=== PATIENT | female | born 1955 | race Caucasian/White ===

== ENCOUNTER 2020-08-28 14:14 | Outpatient (REF) | payer MEDICARE, SELFPAY | END 2020-08-28 14:15 | disposition home or self-care (01) | LOC: HO.LAB 14:14 | PROVIDERS: PCP Family Medicine; Visit Provider Internal Medicine | DX: Z20.828 Contact with and (suspected) exposure to other viral communicable diseases (principal) | CPT/HCPCS: C9803; U0003 ==

== ENCOUNTER 2020-08-28 14:33 | Emergency (ER) | payer MEDICARE, SELFPAY ==
[2020-08-28 15:17] VITALS: BP 138/78; PULSE 70; RESP 18; TEMP 37; O2SAT 98; BMI 35.0
[2020-08-28 15:58] VITALS: BP 134/71; PULSE 68; RESP 17; O2SAT 96
--- NOTE | 2020-08-28 16:07 | ED.BACK ---
HPI - Back Pain/Injury General Chief Complaint: Headache Stated Complaint: back pain, high blood sugar Time Seen by Provider: 08/28/20 16:01 Source: patient Mode of arrival: ambulatory Limitations: no limitations History of Present Illness HPI Narrative: pt comes to the ER c/o headache and lower back pain For 3 days. Patient states that she has tried Tylenol with no relief. Patient cannot take ibuprofen due to renal insufficiency / dialysis. Patient denies any injury, denies dysuria, no fever chills, no cough. Related Data Previous Rx's Medication Instructions Recorded diazepam 2 mg PO TID PRN #10 tab 08/28/20 Allergies Allergy/AdvReac Type Severity Reaction Status Date / Time ibuprofen [IBUPROFEN] Allergy Intermediate HX KIDNEY Verified 08/28/20 15:20 FAILURE oxycodone [OXYCODONE] Allergy Unknown ITCHING, Verified 08/28/20 15:20 throat swells Review of Systems Review of Systems: Constitutional : No Weight loss, No Fever, No Chills, No Night Sweats, No Fatigue, No Malaise ENT/Mouth : No Hearing loss, No Ear Pain, No Nasal Congestion, No Sinus Pain, No Hoarseness, No sore throat, No Rhinorrhea, No Swallowing Difficulty Eyes: No Eye Pain, No Swelling, No Redness, No Foreign Body, No Discharge, No Vision Changes Cardiovascular : No Chest Pain, No SOB, No Dyspnea on Exertion, No Orthopnea, No Edema, No Palpitations Respiratory : No Cough, No Sputum, No Wheezing, No Smoke Exposure, No Dyspnea Gastrointestinal : No Nausea, No Vomiting, No Diarrhea, No Constipation, No abdominal Pain, No Hematochezia, No Melena Genitourinary : no irregular bleeding, No Dysuria, No Urinary Frequency, No Hematuria, No Urinary Incontinence, No Urgency, No Flank Pain, No Urinary Flow Changes, No Hesitancy Musculoskeletal : No joint pain, No Joint Swelling, complaining of lower back pain Skin : No Skin Lesions, No rash Neuro : No Weakness, No Numbness, No Paresthesias, No Loss of Consciousness, No Dizziness, [id number] headache not responding to Tylenol Psych : No Anxiety/Panic, No Depression, No SI/HI/AH/VH, No Social Issues, Heme/Lymph: No Bruising, No Bleeding,No Lymphadenopathy Endocrine : No Polyuria, No Polydipsia, No Temperature Intolerance PMFSH Past Medical History Medical History (Updated 08/28/20 @ 17:18 by Liliane Negrete MD) CKD (chronic kidney disease) GERD (gastroesophageal reflux disease) Gout Hypertension Social History Social History Alcohol intake: never Smoking Status: Never smoker Use of substances other than those prescribed or required for medical reasons: No Advance Directives: No Advance Directives Information Provided: Yes Physical Exam Vital Signs: Vital Signs: Last Vital Signs Temp 98.6 F 08/28/20 15:17 Pulse 68 08/28/20 15:58 Resp 17 08/28/20 15:58 BP 134/71 08/28/20 15:58 Pulse Ox 96 08/28/20 15:58 Body Mass Index 35.0 Appearance: Alert. Oriented X3. No acute distress. Eyes: Pupils equal, round and reactive to light. ENT: Pharynx normal. Neck: Normal inspection. Neck supple. No lymph nodes noted. No crepitus CVS: Normal heart rate and rhythm. Pulses normal. Normal S1 and S2 Respiratory: No respiratory distress. Breath sounds normal. No Wheezing. No rales Abdomen: Soft and nontender. No rigidity. No distention. good BS x4 Back: Pain to the patient on on the paraspinal muscles bilaterally, discomfort with back flexion and extension, no flank pain. Skin: Skin warm and dry. Normal skin color. Normal skin turgor. Extremities: No lower extremity edema. No lower extremity edema. No Lacerations. No Rash Neuro: Oriented X 3. No motor deficit. No sensory deficit. Moving all extermities. No slurred speech. Course Course Course Narrative: Patient does not have a urinary tract infections, pyelonephritis not suspected at this time. Patient's pain likely musculoskeletal. Due to patient's history of kidney failure, and sats will be avoided. MDM - Back Pain/Injury Lab Data Labs: Lab Results 08/28/20 Range/Units 16:42 Urine Color YELLOW Urine Appearance HAZY Urine pH 7.0 (5.0-8.0) Ur Specific [place] 1.010 (1.005-1.025) Urine Protein NEG (NEG-TRACE) MG/DL Urine Glucose (UA) NEG (NEG) MG/DL Urine Ketones NEG (NEG) MG/DL Urine Blood NEG (NEG) Urine Nitrite NEG (NEG) Ur Leukocyte Esterase NEG (NEG) Discharge Plan Discharge Clinical Impression: Headache Qualifiers: Headache type: unspecified Headache chronicity pattern: unspecified pattern Intractability: not intractable Qualified Code(s): R51.9 - Headache, unspecified Back pain Qualifiers: Back pain location: back pain in unspecified location Chronicity: acute Back pain laterality: unspecified Qualified Code(s): M54.9 - Dorsalgia, unspecified Patient Disposition: Home, Self-Care Instructions: Back Pain (ED) Additional Instructions: Please follow-up with your primary care physician tomorrow. If you have any worsening or new symptoms, please return to the emergency room or call 911 Prescriptions: New diazepam 2 mg tablet 2 mg PO TID PRN (Reason: muscle spasm) Qty: 10 RF: 0
[2020-08-28] MEDS: diazePAM 5 MG TABLET PO (16:24)
[2020-08-28] MEDS: traMADoL HCL 50 MG TABLET PO (16:24)
[2020-08-28 17:08] LABS: Glucose Urine UA NEG (NEG); Leukocyte Esterase Urine NEG (NEG); Nitrite Urine NEG (NEG); Urine Blood NEG (NEG); Urine Ketones NEG (NEG); Urine Protein NEG (NEG-TRACE)
[2020-08-28 17:10] LABS: Appearance Urine HAZY; Color Urine YELLOW
== END 2020-08-28 17:29 | disposition home or self-care (01) ==
PROVIDERS: Emergency Provider Emergency Medicine; PCP Family Medicine
DX: R51.9 Headache, unspecified (principal); M54.9 Dorsalgia, unspecified; Z79.899 Other long term (current) drug therapy
CPT/HCPCS: 81003; 99283; 99284

== ENCOUNTER → 2020-10-07 13:54 | Outpatient (REF) | payer MEDICARE, SELFPAY | LOC: HO.SL 13:54 | PROVIDERS: PCP Family Medicine; Visit Provider Nurse Practitioner Family | DX: Z13.89 Encounter for screening for other disorder (principal) ==

== ENCOUNTER 2020-10-19 08:42 | Outpatient (REF) | payer MEDICARE, SELFPAY | END 2020-10-19 08:43 | disposition home or self-care (01) | LOC: HO.LAB 08:42 | PROVIDERS: PCP Family Medicine; Visit Provider Internal Medicine | DX: Z20.822 Contact with and (suspected) exposure to COVID-19 (principal) | CPT/HCPCS: 36415; C9803; U0003 ==

== ENCOUNTER 2020-11-14 08:58 | Outpatient (REF) | payer MEDICARE, SELFPAY ==
[2020-11-14 09:18] LABS: Basophils Absolute Auto 0.1 X10*3/uL (0.0-0.2); Basophils Percent Auto 0.7 % (0-2); Eosinophils Absolute Auto 0.1 X10*3/uL (0.0-0.4); Eosinophils Percent Auto 0.8 % (0-4); Hematocrit 39.3 % (37-47); Hemoglobin 12.9 g/dl (12.0-16.0); Imm Gran Abs Auto 0.03 X10*3/uL (0.00-0.03); Imm Gran Pct Auto 0.4 % (0.0-0.4); Lymphocytes Absolute Auto 2.5 X10*3/uL (1.2-4.9); Lymphocytes Percent Auto 35.3 % (20-40); MANUAL DIFF FLAG NO; Mean Corpuscular HGB Conc 32.8 g/dl (31.0-35.0); Mean Corpuscular Hemoglobin 28.4 pg (27.0-33.0); Mean Corpuscular Volume 86.4 fL (80-98); Mean Platelet Volume 9.7 fL (9.4-12.3); Monocytes Absolute Auto 0.6 X10*3/uL (0.1-1.2); Neutrophils Absolute Auto 3.9 X10*3/uL (2.0-8.3); Neutrophils Percent Auto 54.8 % (45-73); Platelet Count 249 X10*3/uL (160-400); Red Blood Count 4.55 X10*6/uL (4.20-5.50); Red Cell Distribution Width 13.7 % (11.0-16.0); White Blood Count 7.1 X10*3/uL (4.8-10.8)
[2020-11-14 09:45] LABS: Albumin Level 4.3 g/dL (3.5-5.0); Anion Gap 16 (12-20); Blood Urea Nitrogen 23 mg/dL (9-16); Calcium 9.5 mg/dL (8.4-10.2); Carbon Dioxide 25 mmol/L (22-29); Chloride 106 mmol/L (96-108); Estimated Glomerular Filt Rate 46; Magnesium 1.8 mg/dL (1.6-2.6); Phosphorus 3.7 mg/dL (2.7-4.5); Potassium 3.9 mmol/L (3.3-5.1); Sodium 143 mmol/L (135-145)
[2020-11-14 10:11] LABS: Creatinine Urine 36.55 mg/dL; Microalbum/Creatinine Ratio Ur 150.4 ug/mg cr
[2020-11-14 10:27] LABS: Glucose Urine UA 100 MG/DL (NEG); Leukocyte Esterase Urine NEG (NEG); Nitrite Urine NEG (NEG); PH 6.5 (5.0-8.0); Specific Gravity - Urine 1.015 (1.005-1.025); Urine Blood NEG (NEG); Urine Ketones NEG (NEG); Urine Protein NEG (NEG-TRACE)
[2020-11-14 10:29] LABS: Appearance Urine CLEAR; Color Urine YELLOW
[2020-11-14 11:15] LABS: Bacteria Urine TRACE /LPF; RBC Urine 0 /HPF (0); Squamous Epithelial Cell Urine 1+ /LPF; WBC Urine 0 /HPF (0-4)
[2020-11-14 13:08] LABS: Renal w Reflex Lab Use Only Order verified
[2020-11-14 13:24] LABS: Total Protein Urine Random 11 mg/dL (<12)
== END 2020-11-14 08:59 | disposition home or self-care (01) ==
LOC: HO.LAB 08:58
PROVIDERS: PCP Family Medicine; Visit Provider Internal Medicine Nephrology
DX: I12.0 Hypertensive chronic kidney disease with stage 5 chronic kidney disease or end stage renal disease (principal); N18.6 End stage renal disease; E11.21 Type 2 diabetes mellitus with diabetic nephropathy; E11.22 Type 2 diabetes mellitus with diabetic chronic kidney disease; N17.9 Acute kidney failure, unspecified; M1A.00X0 Idiopathic chronic gout, unspecified site, without tophus (tophi); Z99.2 Dependence on renal dialysis
CPT/HCPCS: 36415; 80051; 81001; 82040; 82043; 82310; 82565; 83735; 84100; 84156; 84520; 85025

== ENCOUNTER 2020-12-01 11:51 | Outpatient (REF) | payer MEDICARE, SELFPAY | END 2020-12-01 11:52 | disposition home or self-care (01) | LOC: HO.LAB 11:51 | PROVIDERS: Visit Provider Internal Medicine | DX: Z20.822 Contact with and (suspected) exposure to COVID-19 (principal) | CPT/HCPCS: 36415; C9803; U0003; U0005 ==

== ENCOUNTER → 2020-12-29 14:01 | Outpatient (REF) | payer MEDICARE, SELFPAY | LOC: HO.SL 14:01 | PROVIDERS: PCP Family Medicine; Visit Provider Nurse Practitioner Family | DX: G47.33 Obstructive sleep apnea (adult) (pediatric) (principal) | CPT/HCPCS: 95806 ==

== ENCOUNTER 2021-01-17 04:49 | Emergency (ER) | payer MEDICARE, SELFPAY ==
--- NOTE | ~2021-01-17 | CT_ITS ---
EXAMINATION: CT ABDOMEN AND PELVIS WITHOUT CONTRAST CLINICAL INFORMATION: Flank pain. Evaluate for kidney stone. COMPARISON: Abdomen ultrasound from 08/09/2019. Abdomen CT from 08/07/2019. TECHNIQUE: Multidetector volumetric imaging was performed from the superior aspect of the liver through the pubic symphysis. Sagittal and coronal reformatted images were obtained on the technologist's workstation. This CT examination was performed using dose optimization techniques as appropriate, variously including the following: *Automated exposure control *Adjustment of mA and/or kV according to patient size (this includes techniques or standardized protocols for targeted exams where dose is matched to indication/reason for exam; i.e. extremities or head) *Use of iterative reconstruction technique DLP: 679 mGy-cm FINDINGS: LUNG BASES: There are scattered linear and/or hazy opacities of mild atelectasis in bases. No pulmonary consolidation or pleural effusion at either lung base. LIVER: Mild hepatomegaly and mild, diffuse steatosis. No focal hepatic lesion is detected on this noncontrast examination. GALLBLADDER AND BILIARY TREE: Gallbladder is surgically absent. No intrahepatic or extrahepatic bile duct dilatation. PANCREAS: Normal. No evidence of edema, pancreatic ductal dilatation or mass. SPLEEN: Normal. ADRENAL GLANDS: Again noted is a small adenoma left adrenal gland, which has been detected and described on prior CT exams. KIDNEYS AND URETERS: Kidneys are normal in size and have lobulated contour. No nephrolithiasis or hydronephrosis. 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 There are no stones identified along either ureter. BLADDER: Normal. No calculi or wall thickening. BOWEL AND PERITONEUM: Stomach is unremarkable. No dilated loops of bowel. The appendix is normal. There are diverticula of the colon. No overt bowel wall thickening or mesenteric fat stranding. No ascites or pneumoperitoneum. ABDOMINAL WALL: Unremarkable. VASCULATURE: Unremarkable. LYMPH NODES: No pathologic sized lymph nodes in the abdomen or pelvis. No inguinal lymphadenopathy. PELVIC VISCERA: The uterus is absent. No adnexal mass. No pelvic free fluid. SKELETAL: No acute finding is in the chronically degenerated lumbar spine. The disc space narrowing is worst at L5-S1. Vacuum disc phenomenon at L3-L4 and L4-L5, and chronic grade 1 anterolisthesis of L4 on L5. CT/CT abdomen pelvis wo con IMPRESSION: * No acute imaging abnormalities in the abdomen or pelvis compared to 08/07/2019. * No evidence of urolithiasis or hydronephrosis. * Mild hepatic steatosis.
--- NOTE | ~2021-01-17 | XR_ITS ---
EXAMINATION: XR CHEST CLINICAL INFORMATION: Chest pain COMPARISON: 05/28/2019 TECHNIQUE: 2 views of the chest were obtained. FINDINGS: Lungs are symmetrically hypoexpanded and clear. No consolidation, pleural effusion or pneumothorax. Cardiac silhouette is normal in size. The hilar contours are normal. The visualized bones are intact. XR/XR chest 2V IMPRESSION: No acute pulmonary disease.
--- NOTE | ~2021-01-17 | CT_ITS ---
EXAMINATION: CT ANGIOGRAM OF THE CHEST WITH CONTRAST (CT PULMONARY ANGIOGRAM FOR PE) CLINICAL INFORMATION: Chest pain. Evaluate for pulmonary embolism. COMPARISON: CXR from 01/17/2021. Chest CT from 01/30/2016. TECHNIQUE: Prior to contrast administration, noncontrast localization images were obtained. Subsequently, multidetector volumetric imaging was performed from the thoracic inlet to below the diaphragms following the administration of 65 mL Omnipaque 350 intravenous contrast. No contrast reaction reported. Sagittal, coronal, and MIP oblique sagittal reformatted images were obtained on the CT workstation, uploaded to PACS, and reviewed. This CT examination was performed using dose optimization techniques as appropriate, variously including the following: *Automated exposure control *Adjustment of mA and/or kV according to patient size (this includes techniques or standardized protocols for targeted exams where dose is matched to indication/reason for exam; i.e. extremities or head) *Use of iterative reconstruction technique DLP: Total exam dose-length product 383 mGy-cm FINDINGS: LUNGS AND PLEURA: Trachea and central airways are widely patent and normal in caliber. No mucous plugging or bronchiectasis. No interstitial disease. No edema, consolidation or pleural effusion. No pneumothorax. Lungs have slightly mosaic attenuation, which is suggestive of air trapping phenomenon, as may be observed in small airways inflammation. QUALITY OF STUDY/CONTRAST BOLUS: Satisfactory. CARDIOVASCULAR: The pulmonary arteries are normal in size. No embolic filling defects are identified within the main, lobar or segmental vessels. The heart size is normal. Mild atherosclerotic calcification of coronary arteries. Also, mild atherosclerosis of thoracic aorta without aneurysm. No pericardial effusion. MEDIASTINUM/LOWER NECK: The esophagus is unremarkable. No mediastinal mass or pneumomediastinum. The visualized portion of the thyroid gland is normal. LYMPHATICS: No pathologic sized axillary, hilar or mediastinal lymph nodes. UPPER ABDOMEN: No contrast reflux into the inferior vena cava. Gallbladder is surgically absent. Findings in the abdomen are as reported on CT abdomen-pelvis from 01/17/2021. OSSEOUS STRUCTURES/CHEST WALL: Mild spondylosis of the thoracic spine. Thoracic vertebra have normal height and alignment. No aggressive osseous lesions. Small, 1 cm nodular focus is observed in the right breast at site of prior hematoma. CT/CT angio chest IMPRESSION: * No evidence of pulmonary embolism, pneumonia or pleural effusion. * Lungs have slightly mosaic attenuation. This could represent air trapping phenomenon secondary to small airways inflammation. * Mild atherosclerosis of coronary arteries and thoracic aorta without aortic aneurysm.
[2021-01-17 05:50] VITALS: BP 146/83; PULSE 60; RESP 16; TEMP 37.8; O2SAT 99; BMI 38.7
--- NOTE | 2021-01-17 06:58 | ECG_ITS ---
Test Reason : rt chest pain Blood Pressure : / mmHG Vent. Rate : 066 BPM Atrial Rate : 066 BPM P-R Int : 142 ms QRS Dur : 090 ms QT Int : 442 ms P-R-T Axes : 017 -18 008 degrees QTc Int : 463 ms Normal sinus rhythm Normal ECG When compared with ECG of 21-MAY-2019 13:09, Sinus rhythm has replaced Junctional rhythm Nonspecific T wave abnormality no longer evident in Lateral leads Referred By: Fahad Sapp Electronically Signed By:Samuel Jason
[2021-01-17 07:03] VITALS: BP 140/70; PULSE 61; RESP 18; TEMP 36.9; O2SAT 100
[2021-01-17 07:03] LABS: Glucose Urine UA NEG (NEG); Leukocyte Esterase Urine NEG (NEG); Nitrite Urine NEG (NEG); Urine Blood NEG (NEG); Urine Ketones NEG (NEG); Urine Protein NEG (NEG-TRACE)
[2021-01-17 07:09] LABS: MANUAL DIFF FLAG NO
--- NOTE | 2021-01-17 07:12 | ED.GENADULT ---
HPI - General Adult General Chief complaint: Abdominal Pain Stated complaint: Back pain Time Seen by Provider: 01/17/21 06:32 History of Present Illness HPI narrative: Pleasant 65 years old of female brought in by ambulance because of right-sided pain. She told the EMS that she was having right flank pain , she tells me that the pain is more in the right back chest wall pleuritic in nature In the ambulance and she was given 15 mg of ketorolac by day product design manager. She denies any fever, chills, vomiting. Onset (ago): day(s) (1) Location: back Radiation: non-radiation Severity: moderate Relieving factors: none Associated symptoms: denies other symptoms Related Data Home Medications Medication Instructions Recorded Confirmed amlodipine 10 mg tablet 10 mg PO DAILY 09/22/20 09/23/20 cinnamon bark 500 mg capsule 500 mg PO DAILY 09/22/20 09/23/20 fluticasone propionate 50 0 mcg INTRANASAL 09/22/20 09/23/20 mcg/actuation nasal spray,suspension furosemide 20 mg tablet 20 mg PO QAM 09/22/20 09/23/20 gabapentin 300 mg capsule 300 mg PO BEDTIME 09/22/20 09/23/20 glipizide 5 mg tablet 5 mg PO QAM 09/22/20 09/23/20 hydralazine 50 mg tablet 50 mg PO BID 09/22/20 09/23/20 metoprolol succinate 100 mg 100 mg PO BEDTIME 09/22/20 09/23/20 tablet,extended release 24 hr nystatin 100,000 unit/gram topical TOPICAL BID 09/22/20 09/23/20 cream omega-3 fatty acids-fish oil 340 1 cap PO BID 09/22/20 09/23/20 mg-1,000 mg capsule prednisone 20 mg tablet 20 mg PO BID 09/22/20 09/23/20 rosuvastatin 5 mg tablet 5 mg PO DAILY 09/22/20 09/23/20 Previous Rx's Medication Instructions Recorded diazepam 2 mg PO TID PRN #10 tab 08/28/20 tramadol 50 mg PO Q8H PRN #10 tab 01/17/21 Allergies Allergy/AdvReac Type Severity Reaction Status Date / Time ibuprofen [IBUPROFEN] Allergy Intermediate HX KIDNEY Verified 08/28/20 15:20 FAILURE oxycodone [OXYCODONE] Allergy Unknown ITCHING, Verified 08/28/20 15:20 throat swells Review of Systems Review of Systems: Yes all other systems are reviewed and are negative Cardiovascular: Cardiovascular: Denies Abdominal Distension, Denies diaphoresis, Denies rapid heart rate, Denies lightheadedness, Denies Loss of Consciousness, Denies dyspnea and Denies dyspnea on exertion Respiratory: Respiratory: Denies dyspnea and Denies dyspnea on exertion Gastrointestinal: Gastrointestinal: Denies belching, Denies melena, Denies bloating, Denies hematochezia, Denies diarrhea, Denies loose stools, Denies nausea and Denies vomiting Neurologic: Reports system reviewed and no additional complaints, except as documented PMFSH Past Medical History Medical History CKD (chronic kidney disease) GERD (gastroesophageal reflux disease) Gout Hypertension Social History Social History Alcohol intake: never Smoking Status: Never smoker Advance Directives: No Advance Directives Information Provided: No Physical Exam Vital Signs: Vital Signs: Last Vital Signs Temp 98 F 01/17/21 10:00 Pulse 73 01/17/21 10:00 Resp 18 01/17/21 10:00 BP 158/71 H 01/17/21 10:00 Pulse Ox 100 01/17/21 10:00 Body Mass Index 38.7 Const: General: cooperative and no acute distress Orientation/consciousness: patient oriented x3 HENMT: Head: Yes normal to inspection Eyes: General: appearance normal, both eyes and all related structures Neck: Neck: Yes normal visual inspection, Yes full ROM and Yes no lymphadenopathy Chest: Chest palpation & inspection: normal inspection of the chest Resp: Auscultation: clear to auscultation bilaterally GI: Inspection: Yes normal to inspection Palpation (GI): Soft to palpation, not firm, nontender and no guarding Skin: General skin exam: no rashes or lesions noted, elasticity normal and turgor normal Neuro: General: patient oriented x3 and no focal motor deficits Extrem: General: Yes normal to inspection Course Course Course Narrative: Pt workup was essentially normal. CT chest done because of positive D-dimer and pleuritic chest pain was negative ; CT of the abdomen and pelvis was negative, UA was clear. At this time we can d/c pt home ;pain could be musculoskeletal ;she states now that is worse when she moves . We will d/c home with pain medication she has an allergy to Percocet, she cannot take ibuprofen I will given 10 tablets of tramadol, she states she had tramadol in the past without any side effects. Patient is comfortable with the plan she is doing better at this time ,she is drinking coffee ,all questions answered Procedures Procedure Narrative Procedure Narrative: Difficult IV access I was asked by the RN to place a peripheral IV; Under ultrasound guided cannulated the right basilic vein with 18 gauge long catheter with good flush a good blood return Medical Decision Making MDM Narrative Medical decision making narrative: Patient has right flank pain right back pain pleuritic we are going to get a UA labs CT of the abdomen to rule out renal stone a chest x-ray will re-evaluate after imaging/lab and pain medication Lab Data Result diagrams: 01/17/21 06:56 01/17/21 06:56 Labs: Lab Results 01/17/21 01/17/21 01/17/21 Range/Units 06:45 06:56 06:56 WBC 11.2 H (4.8-10.8) X10*3/uL RBC 4.68 (4.20-5.50) X10*6/uL Hgb 13.2 (12.0-16.0) g/dl Hct 40.4 (37-47) % MCV 86.3 (80-98) fL MCH 28.2 (27.0-33.0) pg MCHC 32.7 (31.0-35.0) g/dl RDW 13.8 (11.0-16.0) % Plt Count 264 (160-400) X10*3/uL MPV 10.1 (9.4-12.3) fL Immature Gran % (Auto) 0.4 (0.0-0.4) % Neut % (Auto) 84.3 H (45-73) % Lymph % (Auto) 10.9 L (20-40) % Bowman % (Auto) 3.6 (2-11) % Eos % (Auto) 0.4 (0-4) % Baso % (Auto) 0.4 (0-2) % Lymph # (Auto) 1.2 (1.2-4.9) X10*3/uL Bowman # (Auto) 0.4 (0.1-1.2) X10*3/uL Eos # (Auto) 0.1 (0.0-0.4) X10*3/uL Baso # (Auto) 0.1 (0.0-0.2) X10*3/uL Abs Immat Gran (auto) 0.05 H (0.00-0.03) X10*3/uL Absolute Neuts (auto) 9.5 H (2.0-8.3) X10*3/uL Absolute Nucleated RBC 0.000 (0.0-0.012) X10*3/uL Nucleated RBC % (auto) 0.0 (0.0-0.2) /100WBC PT (10.8-13.0) SEC INR (0.9-1.1) APTT (24.1-38.0) SEC D-Dimer NG/ML Sodium 140 (135-145) mmol/L Potassium 4.0 (3.3-5.1) mmol/L Chloride 104 (96-108) mmol/L Carbon Dioxide 25 (22-29) mmol/L Anion Gap 15 (12-20) BUN 26 H (9-16) mg/dL Creatinine 1.07 (0.5-1.4) mg/dL Estim Creat Clear Calc 63.7 Estimated GFR 51 Random Glucose 231 H (60-115) mg/dL Calcium 9.7 (8.4-10.2) mg/dL Total Bilirubin 0.7 (0.0-1.0) mg/dL AST 21 (5-31) U/L ALT 23 (0-31) U/L Alkaline Phosphatase 84 (39-117) U/L Total Protein 7.3 (6.5-8.0) g/dL Albumin 4.5 (3.5-5.0) g/dL Urine Color YELLOW Urine Appearance CLEAR Urine pH 7.0 (5.0-8.0) Ur Specific [place] 1.010 (1.005-1.025) Urine Protein NEG (NEG-TRACE) MG/DL Urine Glucose (UA) NEG (NEG) MG/DL Urine Ketones NEG (NEG) MG/DL Urine Blood NEG (NEG) Urine Nitrite NEG (NEG) Ur Leukocyte Esterase NEG (NEG) Urine RBC 0 (0) /HPF Urine WBC 0-2 (0-4) /HPF Ur Squamous Epith Cells NONE /LPF Urine Bacteria NONE /LPF 01/17/21 Range/Units 07:00 WBC (4.8-10.8) X10*3/uL RBC (4.20-5.50) X10*6/uL Hgb (12.0-16.0) g/dl Hct (37-47) % MCV (80-98) fL MCH (27.0-33.0) pg MCHC (31.0-35.0) g/dl RDW (11.0-16.0) % Plt Count (160-400) X10*3/uL MPV (9.4-12.3) fL Immature Gran % (Auto) (0.0-0.4) % Neut % (Auto) (45-73) % Lymph % (Auto) (20-40) % Bowman % (Auto) (2-11) % Eos % (Auto) (0-4) % Baso % (Auto) (0-2) % Lymph # (Auto) (1.2-4.9) X10*3/uL Bowman # (Auto) (0.1-1.2) X10*3/uL Eos # (Auto) (0.0-0.4) X10*3/uL Baso # (Auto) (0.0-0.2) X10*3/uL Abs Immat Gran (auto) (0.00-0.03) X10*3/uL Absolute Neuts (auto) (2.0-8.3) X10*3/uL Absolute Nucleated RBC (0.0-0.012) X10*3/uL Nucleated RBC % (auto) (0.0-0.2) /100WBC PT 11.0 (10.8-13.0) SEC INR 0.9 (0.9-1.1) APTT 47.3 H (24.1-38.0) SEC D-Dimer 1593 NG/ML Sodium (135-145) mmol/L Potassium (3.3-5.1) mmol/L Chloride (96-108) mmol/L Carbon Dioxide (22-29) mmol/L Anion Gap (12-20) BUN (9-16) mg/dL Creatinine (0.5-1.4) mg/dL Estim Creat Clear Calc Estimated GFR Random Glucose (60-115) mg/dL Calcium (8.4-10.2) mg/dL Total Bilirubin (0.0-1.0) mg/dL AST (5-31) U/L ALT (0-31) U/L Alkaline Phosphatase (39-117) U/L Total Protein (6.5-8.0) g/dL Albumin (3.5-5.0) g/dL Urine Color Urine Appearance Urine pH (5.0-8.0) Ur Specific [place] (1.005-1.025) Urine Protein (NEG-TRACE) MG/DL Urine Glucose (UA) (NEG) MG/DL Urine Ketones (NEG) MG/DL Urine Blood (NEG) Urine Nitrite (NEG) Ur Leukocyte Esterase (NEG) Urine RBC (0) /HPF Urine WBC (0-4) /HPF Ur Squamous Epith Cells /LPF Urine Bacteria /LPF ECG Data Attestation: I personally reviewed and interpreted this ECG as follows: Pacemaker model: Normal sinus rhythm a rate is 66 ST-T segment isoelectric Discharge Plan Discharge Clinical Impression: Acute right flank pain Patient Disposition: Home, Self-Care Instructions: Flank Pain (ED) Additional Instructions: Follow-up with your primary care physician return if you worse Prescriptions: New tramadol 50 mg tablet 50 mg PO Q8H PRN (Reason: pain) Qty: 10 RF: 0 No Action diazepam 2 mg tablet 2 mg PO TID PRN (Reason: muscle spasm) Qty: 10 RF: 0 amlodipine 10 mg tablet 10 mg PO DAILY RF: 0 cinnamon bark [Cinnamon] 500 mg capsule 500 mg PO DAILY RF: 0 fluticasone propionate 50 mcg/actuation spray,suspension 0 mcg intranasal RF: 0 gabapentin 300 mg capsule 300 mg PO BEDTIME RF: 0 glipizide 5 mg tablet 5 mg PO QAM RF: 0 hydralazine 50 mg tablet 50 mg PO BID RF: 0 metoprolol succinate 100 mg tablet extended release 24 hr 100 mg PO BEDTIME RF: 0 nystatin 100,000 unit/gram cream topical BID RF: 0 rosuvastatin 5 mg tablet 5 mg PO DAILY RF: 0 Fish Oil 340-1,000 mg capsule 1 cap PO BID RF: 0 prednisone 20 mg tablet 20 mg PO BID RF: 0 furosemide 20 mg tablet 20 mg PO QAM RF: 0 Interventions: ED Discharge Assessment Last Done: 01/17/21 10:31 Discharge Date/Time: 01/17/21 10:53
[2021-01-17 07:13] LABS: Appearance Urine CLEAR; Color Urine YELLOW
[2021-01-17 07:15] LABS: RBC Urine 0 /HPF (0); WBC Urine 0-2 /HPF (0-4)
[2021-01-17 07:17] LABS: Basophils Absolute Auto 0.1 X10*3/uL (0.0-0.2); Basophils Percent Auto 0.4 % (0-2); Eosinophils Absolute Auto 0.1 X10*3/uL (0.0-0.4); Eosinophils Percent Auto 0.4 % (0-4); Hematocrit 40.4 % (37-47); Hemoglobin 13.2 g/dl (12.0-16.0); Imm Gran Abs Auto 0.05 X10*3/uL (0.00-0.03); Imm Gran Pct Auto 0.4 % (0.0-0.4); Lymphocytes Absolute Auto 1.2 X10*3/uL (1.2-4.9); Lymphocytes Percent Auto 10.9 % (20-40); Mean Corpuscular HGB Conc 32.7 g/dl (31.0-35.0); Mean Corpuscular Hemoglobin 28.2 pg (27.0-33.0); Mean Corpuscular Volume 86.3 fL (80-98); Mean Platelet Volume 10.1 fL (9.4-12.3); Monocytes Absolute Auto 0.4 X10*3/uL (0.1-1.2); Monocytes Percent Auto 3.6 % (2-11); Neutrophils Absolute Auto 9.5 X10*3/uL (2.0-8.3); Neutrophils Percent Auto 84.3 % (45-73); Platelet Count 264 X10*3/uL (160-400); Red Blood Count 4.68 X10*6/uL (4.20-5.50); Red Cell Distribution Width 13.8 % (11.0-16.0); White Blood Count 11.2 X10*3/uL (4.8-10.8)
[2021-01-17 07:43] LABS: INTERNATIONAL NORM RATIO 0.9 (0.9-1.1)
[2021-01-17 07:44] LABS: Alanine Aminotransferase 23 U/L (0-31); Albumin Level 4.5 g/dL (3.5-5.0); Alkaline Phosphatase 84 U/L (39-117); Anion Gap 15 (12-20); Aspartate Amino Transferase 21 U/L (5-31); Bilirubin Total 0.7 mg/dL (0.0-1.0); Blood Urea Nitrogen 26 mg/dL (9-16); Calcium 9.7 mg/dL (8.4-10.2); Carbon Dioxide 25 mmol/L (22-29); Chloride 104 mmol/L (96-108); Creatinine Clr Calc Pharmacy 63.7; Estimated Glomerular Filt Rate 51; Glucose Random 231 mg/dL (60-115); Sodium 140 mmol/L (135-145); Total Protein 7.3 g/dL (6.5-8.0)
[2021-01-17 07:52] LABS: Partial Thromboplastin Time 47.3 SEC (24.1-38.0)
[2021-01-17 07:53] LABS: D Dimer 1593 NG/ML
[2021-01-17] MEDS: 0.9 % Sodium Chloride 1,000 ML 999 ML IVCONT (09:28)
[2021-01-17] MEDS: iohexoL 350 MG/ML 75 ML INFUS..BTL IV (09:50)
[2021-01-17 10:00] VITALS: BP 158/71; PULSE 73; RESP 18; TEMP 36.6; O2SAT 100
== END 2021-01-17 10:53 | disposition home or self-care (01) ==
PROVIDERS: Emergency Provider Emergency Medicine
DX: R07.9 Chest pain, unspecified (principal); R10.9 Unspecified abdominal pain; M54.5 Low back pain; I12.9 Hypertensive chronic kidney disease with stage 1 through stage 4 chronic kidney disease, or unspecified chronic kidney disease; N18.9 Chronic kidney disease, unspecified; Z79.899 Other long term (current) drug therapy
CPT/HCPCS: 36415; 71046; 71275; 74176; 80053; 81001; 85025; 85379; 85610; 85730; 93005; 96361; 96365; 96375; 99284; Q9967

== ENCOUNTER → 2021-02-03 19:41 | Outpatient (REF) | payer MEDICARE, SELFPAY | LOC: HO.SL 19:41 | PROVIDERS: Visit Provider Nurse Practitioner Family | DX: G47.33 Obstructive sleep apnea (adult) (pediatric) (principal) | CPT/HCPCS: 95811 ==

== ENCOUNTER 2021-02-10 10:36 | Outpatient (REF) | payer MEDICARE, SELFPAY ==
[2021-02-10 11:36] LABS: MANUAL DIFF FLAG NO
[2021-02-10 11:54] LABS: Basophils Percent Auto 0.4 % (0-2); Eosinophils Absolute Auto 0.1 X10*3/uL (0.0-0.4); Eosinophils Percent Auto 0.9 % (0-4); Hematocrit 40.4 % (37-47); Hemoglobin 13.6 g/dl (12.0-16.0); Imm Gran Abs Auto 0.01 X10*3/uL (0.00-0.03); Imm Gran Pct Auto 0.2 % (0.0-0.4); Lymphocytes Absolute Auto 1.5 X10*3/uL (1.2-4.9); Lymphocytes Percent Auto 26.1 % (20-40); Mean Corpuscular HGB Conc 33.7 g/dl (31.0-35.0); Mean Corpuscular Hemoglobin 28.5 pg (27.0-33.0); Mean Corpuscular Volume 84.7 fL (80-98); Mean Platelet Volume 10.1 fL (9.4-12.3); Monocytes Absolute Auto 0.5 X10*3/uL (0.1-1.2); Monocytes Percent Auto 8.8 % (2-11); Neutrophils Absolute Auto 3.5 X10*3/uL (2.0-8.3); Neutrophils Percent Auto 63.6 % (45-73); Platelet Count 283 X10*3/uL (160-400); Red Blood Count 4.77 X10*6/uL (4.20-5.50); Red Cell Distribution Width 13.2 % (11.0-16.0); White Blood Count 5.6 X10*3/uL (4.8-10.8)
[2021-02-10 12:04] LABS: B Type Natriuretic Peptide 46 pg/mL (<100)
[2021-02-10 12:06] LABS: Albumin Level 4.4 g/dL (3.5-5.0); Anion Gap 15 (12-20); Blood Urea Nitrogen 15 mg/dL (9-16); Calcium 9.7 mg/dL (8.4-10.2); Carbon Dioxide 23 mmol/L (22-29); Chloride 105 mmol/L (96-108); Estimated Glomerular Filt Rate 54; Magnesium 1.8 mg/dL (1.6-2.6); Phosphorus 3.4 mg/dL (2.7-4.5); Potassium 3.4 mmol/L (3.3-5.1); Sodium 140 mmol/L (135-145)
[2021-02-10 12:18] LABS: Anion Gap 15 (12-20); Blood Urea Nitrogen 15 mg/dL (9-16); Calcium 9.8 mg/dL (8.4-10.2); Carbon Dioxide 23 mmol/L (22-29); Chloride 105 mmol/L (96-108); Estimated Glomerular Filt Rate 54; Glucose Random 153 mg/dL (60-115); Potassium 3.4 mmol/L (3.3-5.1); Sodium 140 mmol/L (135-145)
[2021-02-10 12:30] LABS: Vitamin D 25-OH Total 30.7 ng/mL (>30)
[2021-02-10 13:38] LABS: Renal w Reflex Lab Use Only Order verified
[2021-02-10 13:49] LABS: Glucose Urine UA NEG (NEG); Leukocyte Esterase Urine NEG (NEG); Nitrite Urine NEG (NEG); Specific Gravity - Urine 1.015 (1.005-1.025); Urine Blood NEG (NEG); Urine Ketones NEG (NEG); Urine Protein NEG (NEG-TRACE)
[2021-02-10 13:51] LABS: Appearance Urine CLEAR; Color Urine YELLOW
[2021-02-10 14:11] LABS: Microalbum/Creatinine Ratio Ur 35.7 ug/mg cr; Protein/Creatinine Ratio, Ur 0.12 (<0.2); Total Protein Urine Random 9 mg/dL (<12)
[2021-02-10 14:16] LABS: RBC Urine 0 /HPF (0)
[2021-02-10 14:17] LABS: Bacteria Urine TRACE /LPF; Squamous Epithelial Cell Urine 1+ /LPF
[2021-02-11 13:06] LABS: Calcium (PTHI) 9.8 mg/dL (8.6-10.4); PTHI 84 pg/mL (14-64)
== END 2021-02-10 10:37 | disposition home or self-care (01) ==
LOC: HO.LAB 10:36
PROVIDERS: Absent Provider Internal Medicine Nephrology; PCP Family Medicine; Visit Provider Internal Medicine Cardiovascular Disease
DX: R06.02 Shortness of breath (principal)
CPT/HCPCS: 36415; 80048; 80051; 81001; 82040; 82043; 82306; 82310; 82565; 83735; 83880; 83970; 84100; 84156; 84520; 85025

== ENCOUNTER 2021-02-12 10:16 | Outpatient (REF) | payer MEDICARE, SELFPAY ==
--- NOTE | 2021-02-12 12:51 | MHC.AU.ANO ---
Adult Audiological Evaluation Date of Visit: 02/12/21 [employer] Used: Belgian- In Person Reason for Appointment: Patient has been experiencing increasing hearing difficulty over the last few years. She finds herself asking for repetition frequently during conversation. She also reports an occasioanl, intermittent screeching noise in her right ear. Does patient feel they have a hearing loss?: Yes If Yes, Which Ear?: Both Ears Has hearing been tested previously?: No Hearing Handicap Inventory: HHIE SCORE: 20 Based on HHIE score, patient has: Mild to moderate perceived hearing handicap Ear History: Recent Ear Drainage: None Reported Recent Ear Pain: None Reported Ear Infections in Childhood: Right Ear History of Ear Wax Buildup: None Reported Previous Ear Surgery: None Reported Bothersome Tinnitus/Ringing/Noises in Ears: Right Ear Ear used on the phone: Right Ear Blocked/Full Sensation in Ear(s): None Reported History of occupational noise exposure?: No History: No Medical History: Medical History: Hypertension, Kidney Disease (on Dialysis), Type 2 Diabetes, Gout, Seasonal Allergies Medication List: Furosemide, Amlodipine, Glipizide, Hydralazine, Metoprolol, Rosuvastatin, Sodium Bicarb Otoscopy: Right Ear: Unremarkable Left Ear: White mass noted behind tympanic membrane, towards upper portion Tympanometry: Tympanometry performed due to: To assess integrity of the middle ear system Right Ear: Normal Middle Ear System (Type A) Left Ear: Reduced Middle Ear Compliance (Type As) Hearing Evaluation: Transducer(s) Used: Insert Earphones Method: Conventional Audiometry Stimuli Used: Pure Tones Right Ear: Description of Hearing: Moderate/moderately-severe sensorineural hearing loss Left Ear: Description of Hearing: Moderate/moderately-severe sensorineural hearing loss. Asymmetry noted in high frequencies (worse in left ear). Speech Recognition Threshold (SRT): Method Used: Recorded Lists Right Ear: 50 dBHL Left Ear: 50 dBHL Word Discrimination: Method: Recorded Lists Word Lists Used: Lista Bisil?bica (Belgian) Right Ear: 100% at 90 dBHL Left Ear: 96% at 90 dBHL Recommendations: Referral to Ear, Nose, and Throat is recommended to address white mass observed behind left tympanic membrane, reduced left-sided middle ear compliance, and high frequency asymmetry (left ear worse). Patient is interested in pursuing amplification. After a medical clearance is signed by Ear, Nose, and Throat, a hearing aid evaluation can be scheduled. Diagnosis: Primary Diagnosis: H90.3 Bilateral Sensorineural Hearing Loss Services Performed: Comprehensive Audiological Evaluation (CPT 03537), Tympanometry (CPT 91266) Signature: Provider: Arsalan Ventura, CCC-A
--- NOTE | 2021-02-12 12:58 | MHC.AU.ANO ---
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 She finds herself asking for repetition frequently during conversation. Patient reports an occasional screeching noise in her right ear. She also has been experiencing dizziness that she describes as a room-spinning sensation. She feels it is worse when she stands up; however, it has also happened without an obvious trigger. Does patient feel they have a hearing loss?: Yes If Yes, Which Ear?: Both Ears Has hearing been tested previously?: No Hearing Handicap Inventory: HHIE SCORE: 20 Based on HHIE score, patient has: Mild to moderate perceived hearing handicap Ear History: Recent Ear Drainage: None Reported Recent Ear Pain: None Reported Ear Infections in Childhood: Right Ear History of Ear Wax Buildup: None Reported Previous Ear Surgery: None Reported Bothersome Tinnitus/Ringing/Noises in Ears: Right Ear Ear used on the phone: Right Ear Blocked/Full Sensation in Ear(s): None Reported History of occupational noise exposure?: No History: No Medical History: Medical History: Hypertension, Kidney Disease (on Dialysis), Type 2 Diabetes, Gout, Seasonal Allergies Medication List: Furosemide, Amlodipine, Glipizide, Hydralazine, Metoprolol, Rosuvastatin, Sodium Bicarb Otoscopy: Right Ear: Unremarkable Left Ear: White mass noted behind tympanic membrane, towards upper portion Tympanometry: Tympanometry performed due to: To assess integrity of the middle ear system Right Ear: Normal Middle Ear System (Type A) Left Ear: Reduced Middle Ear Compliance (Type As) Hearing Evaluation: Transducer(s) Used: Insert Earphones Method: Conventional Audiometry Stimuli Used: Pure Tones Right Ear: Description of Hearing: Moderate/moderately-severe sensorineural hearing loss Left Ear: Description of Hearing: Moderate/moderately-severe sensorineural hearing loss. Asymmetry noted in high frequencies (worse in left ear). Speech Recognition Threshold (SRT): Method Used: Recorded Lists Right Ear: 50 dBHL Left Ear: 50 dBHL Word Discrimination: Method: Recorded Lists Word Lists Used: Lista Bisil?bica (Portuguese) Right Ear: 100% at 90 dBHL Left Ear: 96% at 90 dBHL Recommendations: Referral to Ear, Nose, and Throat is recommended to address white mass observed behind left tympanic membrane, reduced left-sided middle ear compliance, and high frequency asymmetry (left ear worse). Patient is interested in pursuing amplification. After a medical clearance is signed by Ear, Nose, and Throat, a hearing aid evaluation can be scheduled. Diagnosis: Primary Diagnosis: H90.3 Bilateral Sensorineural Hearing Loss Services Performed: Comprehensive Audiological Evaluation (CPT 66065), Tympanometry (CPT 51526) Signature: Provider: Arsalan Ventura, HAZEL-A
== END 2021-02-12 10:17 | disposition home or self-care (01) ==
LOC: HO.SH 10:16
PROVIDERS: Visit Provider Family Medicine
DX: H90.3 Sensorineural hearing loss, bilateral (principal)
CPT/HCPCS: 92557; 92567

== ENCOUNTER 2021-02-23 13:12 | Outpatient (REF) | payer MEDICARE, SELFPAY ==
--- NOTE | ~2021-02-23 | MM_ITS ---
EXAMINATION: MM SCREENING DIGITAL BREAST TOMOSYNTHESIS, BILATERAL CLINICAL INFORMATION: Screening. Asymptomatic. Prior history right stereotactic biopsy 08/28/2014 ([facility]). Surgical biopsy right breast 09/18/2014 (benign breast tissue with a healing biopsy site. No residual ductal proliferative lesion). The lifetime risk of breast cancer based on the Tyrer-Cuzick Model is 22%. COMPARISON: Mammography: 10/03/2019, 08/28/2018, 02/24/2017 TECHNIQUE: Digital breast tomosynthesis is performed in both the craniocaudal and mediolateral oblique views along with computer-aided detection (CAD). Synthesized 2D images are generated from the tomosynthesis. FINDINGS: There are scattered areas of fibroglandular density (ACR BI-RADS breast composition Category b). Breast parenchymal pattern is similar to prior exams. The left breast is unremarkable. There is no developing density or interval mass or architectural abnormality. Neither breast shows abnormal calcifications. The right breast has post surgical changes with an upper outer quadrant scar, decreased in size from prior studies. There is also a biopsy clip marker overlying small stable asymmetric density mid 9:00 right breast. No significant changes. MM/MM tomosynthesis screening BI IMPRESSION: 1. No mammographic evidence of malignancy. 2. Post surgical changes right breat. ASSESSMENT: BI-RADS 2: Benign RECOMMENDATION: 1. Routine annual mammography screening. 2. The lifetime risk of breast cancer based on the Tyrer-Cuzick Model is 22%. Additional annual adjunct screening with breast MRI may be of benefit in women with a risk score of 20% or greater. This patient's information was entered into a reminder system with a target due date for their next mammogram.
== END 2021-02-23 13:13 | disposition home or self-care (01) ==
LOC: HO.MAMMO 13:12
PROVIDERS: PCP Family Medicine; Visit Provider Family Medicine
DX: Z12.31 Encounter for screening mammogram for malignant neoplasm of breast (principal)
CPT/HCPCS: 77063; 77067

== ENCOUNTER 2021-03-19 13:02 | Outpatient (REF) | payer MEDICARE, SELFPAY | END 2021-03-19 13:03 | disposition home or self-care (01) | LOC: HO.MRI 13:02 | PROVIDERS: Visit Provider Family Medicine | DX: Z13.89 Encounter for screening for other disorder (principal) ==

== ENCOUNTER 2021-03-21 11:14 | Emergency (ER) | payer MEDICARE, SELFPAY ==
[2021-03-21] VITALS (9 sets, daily range): BP systolic 139–164; BP diastolic 62–81; PULSE 70–92; RESP 16–17; TEMP 36.4–37.2; O2SAT 97–99; BMI 34.7
--- NOTE | ~2021-03-21 | CT_ITS ---
EXAMINATION: CT CERVICAL SPINE WITHOUT CONTRAST CLINICAL INFORMATION: Neck pain COMPARISON: None TECHNIQUE: Multidetector CT scan of the cervical spine with multiplanar reconstructions. This CT examination was performed using dose optimization techniques as appropriate, variously including the following: *Automated exposure control *Adjustment of mA and/or kV according to patient size (this includes techniques or standardized protocols for targeted exams where dose is matched to indication/reason for exam; i.e. extremities or head) *Use of iterative reconstruction technique DLP: 674 mGy-cm FINDINGS: There is straightening of the normal cervical lordosis. There are advanced degenerative disc disease changes most notable at C5-C6 and C6-C7 without subluxation. Marginal osteophytes noted both anteriorly and posteriorly. There is no fracture deformity. CPPD arthropathy changes noted about the C1-C2 articulation. There are disc aspect complex most notable at C6-C7 resulting at least moderate central canal narrowing which may be better assessed with MRI. The paraspinal soft tissues are unremarkable. Thyroid gland normal. There are ground glass opacities of both apices which are nonspecifically related to small vessel airway disease as well as atypical infection. CT/CT cervical spine wo con IMPRESSION: Spondylosis most notable at C6-C7. CT findings of fat least moderate central canal narrowing. MRI may be obtained as warranted clinically to better assess for disc disease.
--- NOTE | 2021-03-21 12:50 | ED.DIZZY ---
HPI - Dizziness General Chief Complaint: Dizziness <Kate Sesay PA-C - Last Filed: 03/21/21 17:55> Stated Complaint: immense neck pain <Kate Sesay PA-C - Last Filed: 03/21/21 17:55> Time Seen by Provider: 03/21/21 12:34 <Kate Sesay PA-C - Last Filed: 03/21/21 17:55> Source: patient and family <DYLAN Islas Last Filed: 03/21/21 17:55> Mode of arrival: ambulatory <DYLAN Islas Last Filed: 03/21/21 17:55> Limitations: language barrier (Nepalese speaking, nurse interpreted) <DYLAN Islas Last Filed: 03/21/21 17:55> History of Present Illness HPI Narrative: Patient is a 65-year-old female with a past medical history of diabetes, HTN, Gout, GERD, SIMEON CKD with dialysis times 20 sessions which ended approximately year and half ago complaining of 2 weeks of dizziness and 3 days of right-sided neck pain. Patient states she has not taken anything to try to make the dizziness go away but did call her doctor and they never called her back. She states this has happened once before and she just waited it out and it went away on its own. She denies nausea vomiting chest pain shortness of breath headaches lightheadedness, changes in her hearing or vision or passing out. She describes the dizziness as the room spinning and it is worse with standing. Patient denies new pillows, mattress or sleeping somewhere new. According to hospital records, patient had an BIANKA in May 2019 which required dialysis for a short period of time, unknown reason for BIANKA. She also had elevated LFTs for unknown reasons that resolved on their own. She is status post cholecystectomy <DYLAN Islas Last Filed: 03/21/21 17:55> Related Data Home Medications: Home Medications Medication Instructions Recorded Confirmed amlodipine 10 mg tablet 10 mg PO DAILY 09/22/20 09/23/20 cinnamon bark 500 mg capsule 500 mg PO DAILY 09/22/20 09/23/20 fluticasone propionate 50 0 mcg INTRANASAL 12/08/20 12/09/20 mcg/actuation nasal spray,suspension furosemide 20 mg tablet 20 mg PO QAM 09/22/20 09/23/20 gabapentin 300 mg capsule 300 mg PO BEDTIME 09/22/20 09/23/20 glipizide 5 mg tablet 5 mg PO QAM 09/22/20 09/23/20 hydralazine 50 mg tablet 50 mg PO BID 09/22/20 09/23/20 metoprolol succinate 100 mg 100 mg PO BEDTIME 09/22/20 09/23/20 tablet,extended release 24 hr nystatin 100,000 unit/gram topical TOPICAL BID 09/22/20 09/23/20 cream omega-3 fatty acids-fish oil 340 1 cap PO BID 09/22/20 09/23/20 mg-1,000 mg capsule prednisone 20 mg tablet 20 mg PO BID 09/22/20 09/23/20 rosuvastatin 5 mg tablet 5 mg PO DAILY 09/22/20 09/23/20 Previous Rx's Medication Instructions Recorded diazepam 2 mg PO TID PRN #10 tab 08/28/20 tramadol 50 mg PO Q8H PRN #10 tab 01/17/21 meclizine 25 mg PO BID PRN #10 tab 03/21/21 <Kate Sesay PA-C - Last Filed: 03/21/21 17:55> Allergies/Adverse Reactions: Allergies Allergy/AdvReac Type Severity Reaction Status Date / Time ibuprofen [IBUPROFEN] Allergy Intermediate HX KIDNEY Verified 03/21/21 12:28 FAILURE oxycodone [OXYCODONE] Allergy Unknown ITCHING, Verified 03/21/21 12:28 throat swells <Kate Sesay PA-C - Last Filed: 03/21/21 17:55> Review of Systems Review of Systems: Yes all other systems are reviewed and are negative <Kate Sesay PA-C - Last Filed: 03/21/21 17:55> ENT: Reports Normal hearing present <Kate Sesay PA-C - Last Filed: 03/21/21 17:55> Neurologic: Reports Normal hearing present <Kate Sesay PA-C - Last Filed: 03/21/21 17:55> [facility] Past Medical History Medical History: Medical History (Updated 03/21/21 @ 17:50 by Kate Sesay PA-C) CKD (chronic kidney disease) Diabetes GERD (gastroesophageal reflux disease) Gout Hypertension <Kate Sesay PA-C - Last Filed: 03/21/21 17:55> Social History Social History: Social History Alcohol intake: never Patient Tobacco Use Status: Never used Tobacco Use of substances other than those prescribed or required for medical reasons: No Advance Directives: No Advance Directives Information Provided: No <Kate Sesay PA-C - Last Filed: 03/21/21 17:55> Physical Exam Vital Signs: Vital Signs: Last Vital Signs Temp 98.9 F 03/21/21 20:00 Pulse 89 03/21/21 20:00 Resp 16 03/21/21 20:00 BP 164/80 H 03/21/21 20:00 Pulse Ox 97 03/21/21 20:00 Body Mass Index 34.7 <Kate Sesay PA-C - Last Filed: 03/21/21 17:55> Vital Signs: Last Vital Signs Temp 98.9 F 03/21/21 20:00 Pulse 89 03/21/21 20:00 Resp 16 03/21/21 20:00 BP 164/80 H 03/21/21 20:00 Pulse Ox 97 03/21/21 20:00 Body Mass Index 34.7 <PORSHA Stinson Last Filed: 03/21/21 21:16> Const: General: cooperative, healthy appearing, comfortable, no acute distress and well developed <Kate Sesay PA-C - Last Filed: 03/21/21 17:55> Orientation/consciousness: patient oriented x3 <Kate Sesay PA-C - Last Filed: 03/21/21 17:55> Limitations: no limitations <Kate Sesay PA-C - Last Filed: 03/21/21 17:55> HENMT: Head: Yes normal to inspection <Kate Sesay PA-C - Last Filed: 03/21/21 17:55> Ears: TM's normal bilaterally <DYLAN Islas Last Filed: 03/21/21 17:55> General nose exam: Normal external nose present <Kate Sesay PA-C - Last Filed: 03/21/21 17:55> Face and sinus: Yes normal facial exam <Kate Sesay PA-C - Last Filed: 03/21/21 17:55> Mouth: Normal oral and palatal mucosa present and tongue normal <Kate Sesay PA-C - Last Filed: 03/21/21 17:55> Teeth and gingiva: dentition normal <Kate Sesay PA-C - Last Filed: 03/21/21 17:55> Throat: Yes posterior oropharynx normal and Yes uvula midline <Kate Sesay PA-C - Last Filed: 03/21/21 17:55> Eyes: General: appearance normal, both eyes and all related structures <Kate Sesay PA-C - Last Filed: 03/21/21 17:55> Pupils: Equal, round and reactive pupils present <Kate Sesay PA-C - Last Filed: 03/21/21 17:55> EOM: EOMs intact bilaterally <DYALN Islas Last Filed: 03/21/21 17:55> Neck: Neck: Yes normal visual inspection and Yes trachea midline <Kate Sesay PA-C - Last Filed: 03/21/21 17:55> Resp: Effort & Inspection: normal respiratory effort and able to speak in complete sentences <DYLAN Islas Last Filed: 03/21/21 17:55> Auscultation: clear to auscultation bilaterally <Kate Sesay PA-C - Last Filed: 03/21/21 17:55> Cardio: Rate: regular rate <DYLAN Islas Last Filed: 03/21/21 17:55> Rhythm: regular rhythm <DYLAN Islas Last Filed: 03/21/21 17:55> Heart sounds: normal S1 and S2 <Kate Sesay PA-C - Last Filed: 03/21/21 17:55> GI: Inspection: Yes normal to inspection <DYLAN Islas Last Filed: 03/21/21 17:55> Palpation (GI): Soft to palpation and nontender <Kate Sesay PA-C Arron Last Filed: 03/21/21 17:55> Back/Spine/Pelvis: Cervical Spine: cervical muscular tenderness (right sided), pain with cervical ROM and No Cervical spine tenderness <Kate Sesay PA-C Arron Last Filed: 03/21/21 17:55> Skin: General skin exam: no rashes or lesions noted <Kate Sesay PA-C Arron Last Filed: 03/21/21 17:55> Neuro: General: patient oriented x3 <Kate Sesay PA-C Arron Last Filed: 03/21/21 17:55> Cranial nerves: Yes Facial sensation intact/muscles of mastication intact, Yes Equal, round and reactive pupils present, Yes Bilaterally intact EOM present, Yes Nystagmus not present, Yes Normal facial strength present, Yes Midline tongue present, Yes Symmetric palate elevation present and Yes Normal hearing present <Kate Sesay PA-C Arron Last Filed: 03/21/21 17:55> Extrem: General: Yes normal to inspection <Kate Sesay PA-C Arron Last Filed: 03/21/21 17:55> Course Reevaluation(s) Reevaluation #1: EKG NSR at 69BPM, labs within normal limits, troponin 18.3, will get repeat at 17:00 Patient is requesting medication for her pain, she states she cannot take Tylenol or NSAIDs because of her liver and kidney issues. She states she is allergic to oxycodone but can tolerate tramadol. Will give dose of tramadol with meclizine. <DYLAN Islas Last Filed: 03/21/21 17:55> I re-evaluated patient and history physical exam indicates cervical radiculopathy ( posterior neck pain for 3 days) as explained by cervical spine CT. Not suspecting meningitis, stroke, or epidural abscess. Patient's 2nd troponin did not increased by 50%. Not suspecting DE. Patient denies ever having chest pain, shortness of breath, are left upper extremity numbness/tingling. 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 Patient will be discharged with pain medications. Patient given copy of images and labs to follow-up with PCP. <Wali Al, PA - Last Filed: 03/21/21 21:16> Time: 16:25 <Kate Sesay PA-C - Last Filed: 03/21/21 17:55> Reevaluation #2: Patient states her dizziness has resolved but her neck pain is still there, she is crying. Will get cervical CT scan and give Flexeril. Orthostatics negative. <Kate Sesay PA-C - Last Filed: 03/21/21 17:55> Time: 17:38 <Kate Sesay PA-C - Last Filed: 03/21/21 17:55> Reevaluation #3: Patient reporting absolutely no improvement in her neck pain and is moaning in bed. Due to her inability to tolerate NSAIDs Tylenol or oxycodone, and the fact that ever D given her tramadol and Flexeril, I will try prednisone and reassess. Cervical CT showed spondylosis at C6-C7 with the recommendation for MRI for better assessment of disc disease. <Kate Sesay PA-C - Last Filed: 03/21/21 17:55> Time: 17:43 <Kate Sesay PA-C - Last Filed: 03/21/21 17:55> Additional Reevaluation(s): Repeat troponin 18.8 Sign-out to PORSHA Byrd <Kate Sesay PA-C - Last Filed: 03/21/21 17:55> MDM - Dizziness Medical Records Attestation: I reviewed the patient's medical records. <Kate Sesay PA-C - Last Filed: 03/21/21 17:55> Lab Data Attestation: I reviewed the patient's lab results. <Kate Sesay PA-C - Last Filed: 03/21/21 17:55> Result diagrams: : 03/21/21 14:09 03/21/21 14:09 <Kate Sesay PA-C - Last Filed: 03/21/21 17:55> Labs: Lab Results 03/21/21 03/21/21 03/21/21 Range/Units 14:09 14:09 14:09 WBC 10.0 (4.8-10.8) X10*3/uL RBC 4.63 (4.20-5.50) X10*6/uL Hgb 13.4 (12.0-16.0) g/dl Hct 39.5 (37-47) % MCV 85.3 (80-98) fL MCH 28.9 (27.0-33.0) pg MCHC 33.9 (31.0-35.0) g/dl RDW 13.7 (11.0-16.0) % Plt Count 244 (160-400) X10*3/uL MPV 9.6 (9.4-12.3) fL Immature Gran % (Auto) 0.4 (0.0-0.4) % Neut % (Auto) 72.3 (45-73) % Lymph % (Auto) 16.1 L (20-40) % [place] % (Auto) 9.7 (2-11) % Eos % (Auto) 1.1 (0-4) % Baso % (Auto) 0.4 (0-2) % Lymph # (Auto) 1.6 (1.2-4.9) X10*3/uL [place] # (Auto) 1.0 (0.1-1.2) X10*3/uL Eos # (Auto) 0.1 (0.0-0.4) X10*3/uL Baso # (Auto) 0.0 (0.0-0.2) X10*3/uL Abs Immat Gran (auto) 0.04 H (0.00-0.03) X10*3/uL Absolute Neuts (auto) 7.3 (2.0-8.3) X10*3/uL Absolute Nucleated RBC 0.000 (0.0-0.012) X10*3/uL Nucleated RBC % (auto) 0.0 (0.0-0.2) /100WBC PT 11.8 (10.8-13.0) SEC INR 1.0 (0.9-1.1) APTT 48.1 H (24.1-38.0) SEC Sodium 140 (135-145) mmol/L Potassium 3.7 (3.3-5.1) mmol/L Chloride 104 (96-108) mmol/L Carbon Dioxide 24 (22-29) mmol/L Anion Gap 16 (12-20) BUN 16 (9-16) mg/dL Creatinine 0.94 (0.5-1.4) mg/dL Estim Creat Clear Calc 68.3 Estimated GFR 59 POC Glucose (60-115) mg/dL Random Glucose 123 H (60-115) mg/dL Calcium 9.8 (8.4-10.2) mg/dL Total Bilirubin 1.1 H (0.0-1.0) mg/dL AST 28 (5-31) U/L ALT 25 (0-31) U/L Alkaline Phosphatase 79 (39-117) U/L Troponin I High Sens (<3.5-17.0) ng/L Total Protein 7.0 (6.5-8.0) g/dL Albumin 4.3 (3.5-5.0) g/dL Urine Color Urine Appearance Urine pH (5.0-8.0) Ur Specific Howe (1.005-1.025) Urine Protein (NEG-TRACE) MG/DL Urine Glucose (UA) (NEG) MG/DL Urine Ketones (NEG) MG/DL Urine Blood (NEG) Urine Nitrite (NEG) Ur Leukocyte Esterase (NEG) Urine RBC (0) /HPF Urine WBC (0-4) /HPF Ur Squamous Epith Cells /LPF Amorphous Sediment /LPF Urine Bacteria /LPF 03/21/21 03/21/21 03/21/21 Range/Units 14:09 16:12 17:00 WBC (4.8-10.8) X10*3/uL RBC (4.20-5.50) X10*6/uL Hgb (12.0-16.0) g/dl Hct (37-47) % MCV (80-98) fL MCH (27.0-33.0) pg MCHC (31.0-35.0) g/dl RDW (11.0-16.0) % Plt Count (160-400) X10*3/uL MPV (9.4-12.3) fL Immature Gran % (Auto) (0.0-0.4) % Neut % (Auto) (45-73) % Lymph % (Auto) (20-40) % [place] % (Auto) (2-11) % Eos % (Auto) (0-4) % Baso % (Auto) (0-2) % Lymph # (Auto) (1.2-4.9) X10*3/uL [place] # (Auto) (0.1-1.2) X10*3/uL Eos # (Auto) (0.0-0.4) X10*3/uL Baso # (Auto) (0.0-0.2) X10*3/uL Abs Immat Gran (auto) (0.00-0.03) X10*3/uL Absolute Neuts (auto) (2.0-8.3) X10*3/uL Absolute Nucleated RBC (0.0-0.012) X10*3/uL Nucleated RBC % (auto) (0.0-0.2) /100WBC PT (10.8-13.0) SEC INR (0.9-1.1) APTT (24.1-38.0) SEC Sodium (135-145) mmol/L Potassium (3.3-5.1) mmol/L Chloride (96-108) mmol/L Carbon Dioxide (22-29) mmol/L Anion Gap (12-20) BUN (9-16) mg/dL Creatinine (0.5-1.4) mg/dL Estim Creat Clear Calc Estimated GFR POC Glucose (60-115) mg/dL Random Glucose (60-115) mg/dL Calcium (8.4-10.2) mg/dL Total Bilirubin (0.0-1.0) mg/dL AST (5-31) U/L ALT (0-31) U/L Alkaline Phosphatase (39-117) U/L Troponin I High Sens 18.3 H* 18.8 H* (<3.5-17.0) ng/L Total Protein (6.5-8.0) g/dL Albumin (3.5-5.0) g/dL Urine Color YELLOW Urine Appearance HAZY Urine pH 6.5 (5.0-8.0) Ur Specific Howe 1.015 (1.005-1.025) Urine Protein 1+ H (NEG-TRACE) MG/DL Urine Glucose (UA) NEG (NEG) MG/DL Urine Ketones NEG (NEG) MG/DL Urine Blood NEG (NEG) Urine Nitrite NEG (NEG) Ur Leukocyte Esterase NEG (NEG) Urine RBC 0 (0) /HPF Urine WBC 0-2 (0-4) /HPF Ur Squamous Epith Cells 4+ /LPF Amorphous Sediment 4+ /LPF Urine Bacteria TRACE /LPF 03/21/21 Range/Units 19:42 WBC (4.8-10.8) X10*3/uL RBC (4.20-5.50) X10*6/uL Hgb (12.0-16.0) g/dl Hct (37-47) % MCV (80-98) fL MCH (27.0-33.0) pg MCHC (31.0-35.0) g/dl RDW (11.0-16.0) % Plt Count (160-400) X10*3/uL MPV (9.4-12.3) fL Immature Gran % (Auto) (0.0-0.4) % Neut % (Auto) (45-73) % Lymph % (Auto) (20-40) % [place] % (Auto) (2-11) % Eos % (Auto) (0-4) % Baso % (Auto) (0-2) % Lymph # (Auto) (1.2-4.9) X10*3/uL [place] # (Auto) (0.1-1.2) X10*3/uL Eos # (Auto) (0.0-0.4) X10*3/uL Baso # (Auto) (0.0-0.2) X10*3/uL Abs Immat Gran (auto) (0.00-0.03) X10*3/uL Absolute Neuts (auto) (2.0-8.3) X10*3/uL Absolute Nucleated RBC (0.0-0.012) X10*3/uL Nucleated RBC % (auto) (0.0-0.2) /100WBC PT (10.8-13.0) SEC INR (0.9-1.1) APTT (24.1-38.0) SEC Sodium (135-145) mmol/L Potassium (3.3-5.1) mmol/L Chloride (96-108) mmol/L Carbon Dioxide (22-29) mmol/L Anion Gap (12-20) BUN (9-16) mg/dL Creatinine (0.5-1.4) mg/dL Estim Creat Clear Calc Estimated GFR POC Glucose 142 H (60-115) mg/dL Random Glucose (60-115) mg/dL Calcium (8.4-10.2) mg/dL Total Bilirubin (0.0-1.0) mg/dL AST (5-31) U/L ALT (0-31) U/L Alkaline Phosphatase (39-117) U/L Troponin I High Sens (<3.5-17.0) ng/L Total Protein (6.5-8.0) g/dL Albumin (3.5-5.0) g/dL Urine Color Urine Appearance Urine pH (5.0-8.0) Ur Specific Howe (1.005-1.025) Urine Protein (NEG-TRACE) MG/DL Urine Glucose (UA) (NEG) MG/DL Urine Ketones (NEG) MG/DL Urine Blood (NEG) Urine Nitrite (NEG) Ur Leukocyte Esterase (NEG) Urine RBC (0) /HPF Urine WBC (0-4) /HPF Ur Squamous Epith Cells /LPF Amorphous Sediment /LPF Urine Bacteria /LPF <Kate Sesay PA-C - Last Filed: 03/21/21 17:55> Lab Results 03/21/21 03/21/21 03/21/21 Range/Units 14:09 14:09 14:09 WBC 10.0 (4.8-10.8) X10*3/uL RBC 4.63 (4.20-5.50) X10*6/uL Hgb 13.4 (12.0-16.0) g/dl Hct 39.5 (37-47) % MCV 85.3 (80-98) fL MCH 28.9 (27.0-33.0) pg MCHC 33.9 (31.0-35.0) g/dl RDW 13.7 (11.0-16.0) % Plt Count 244 (160-400) X10*3/uL MPV 9.6 (9.4-12.3) fL Immature Gran % (Auto) 0.4 (0.0-0.4) % Neut % (Auto) 72.3 (45-73) % Lymph % (Auto) 16.1 L (20-40) % [place] % (Auto) 9.7 (2-11) % Eos % (Auto) 1.1 (0-4) % Baso % (Auto) 0.4 (0-2) % Lymph # (Auto) 1.6 (1.2-4.9) X10*3/uL [place] # (Auto) 1.0 (0.1-1.2) X10*3/uL Eos # (Auto) 0.1 (0.0-0.4) X10*3/uL Baso # (Auto) 0.0 (0.0-0.2) X10*3/uL Abs Immat Gran (auto) 0.04 H (0.00-0.03) X10*3/uL Absolute Neuts (auto) 7.3 (2.0-8.3) X10*3/uL Absolute Nucleated RBC 0.000 (0.0-0.012) X10*3/uL Nucleated RBC % (auto) 0.0 (0.0-0.2) /100WBC PT 11.8 (10.8-13.0) SEC INR 1.0 (0.9-1.1) APTT 48.1 H (24.1-38.0) SEC Sodium 140 (135-145) mmol/L Potassium 3.7 (3.3-5.1) mmol/L Chloride 104 (96-108) mmol/L Carbon Dioxide 24 (22-29) mmol/L Anion Gap 16 (12-20) BUN 16 (9-16) mg/dL Creatinine 0.94 (0.5-1.4) mg/dL Estim Creat Clear Calc 68.3 Estimated GFR 59 POC Glucose (60-115) mg/dL Random Glucose 123 H (60-115) mg/dL Calcium 9.8 (8.4-10.2) mg/dL Total Bilirubin 1.1 H (0.0-1.0) mg/dL AST 28 (5-31) U/L ALT 25 (0-31) U/L Alkaline Phosphatase 79 (39-117) U/L Troponin I High Sens (<3.5-17.0) ng/L Total Protein 7.0 (6.5-8.0) g/dL Albumin 4.3 (3.5-5.0) g/dL Urine Color Urine Appearance Urine pH (5.0-8.0) Ur Specific Howe (1.005-1.025) Urine Protein (NEG-TRACE) MG/DL Urine Glucose (UA) (NEG) MG/DL Urine Ketones (NEG) MG/DL Urine Blood (NEG) Urine Nitrite (NEG) Ur Leukocyte Esterase (NEG) Urine RBC (0) /HPF Urine WBC (0-4) /HPF Ur Squamous Epith Cells /LPF Amorphous Sediment /LPF Urine Bacteria /LPF 03/21/21 03/21/21 03/21/21 Range/Units 14:09 16:12 17:00 WBC (4.8-10.8) X10*3/uL RBC (4.20-5.50) X10*6/uL Hgb (12.0-16.0) g/dl Hct (37-47) % MCV (80-98) fL MCH (27.0-33.0) pg MCHC (31.0-35.0) g/dl RDW (11.0-16.0) % Plt Count (160-400) X10*3/uL MPV (9.4-12.3) fL Immature Gran % (Auto) (0.0-0.4) % Neut % (Auto) (45-73) % Lymph % (Auto) (20-40) % [place] % (Auto) (2-11) % Eos % (Auto) (0-4) % Baso % (Auto) (0-2) % Lymph # (Auto) (1.2-4.9) X10*3/uL [place] # (Auto) (0.1-1.2) X10*3/uL Eos # (Auto) (0.0-0.4) X10*3/uL Baso # (Auto) (0.0-0.2) X10*3/uL Abs Immat Gran (auto) (0.00-0.03) X10*3/uL Absolute Neuts (auto) (2.0-8.3) X10*3/uL Absolute Nucleated RBC (0.0-0.012) X10*3/uL Nucleated RBC % (auto) (0.0-0.2) /100WBC PT (10.8-13.0) SEC INR (0.9-1.1) APTT (24.1-38.0) SEC Sodium (135-145) mmol/L Potassium (3.3-5.1) mmol/L Chloride (96-108) mmol/L Carbon Dioxide (22-29) mmol/L Anion Gap (12-20) BUN (9-16) mg/dL Creatinine (0.5-1.4) mg/dL Estim Creat Clear Calc Estimated GFR POC Glucose (60-115) mg/dL Random Glucose (60-115) mg/dL Calcium (8.4-10.2) mg/dL Total Bilirubin (0.0-1.0) mg/dL AST (5-31) U/L ALT (0-31) U/L Alkaline Phosphatase (39-117) U/L Troponin I High Sens 18.3 H* 18.8 H* (<3.5-17.0) ng/L Total Protein (6.5-8.0) g/dL Albumin (3.5-5.0) g/dL Urine Color YELLOW Urine Appearance HAZY Urine pH 6.5 (5.0-8.0) Ur Specific Howe 1.015 (1.005-1.025) Urine Protein 1+ H (NEG-TRACE) MG/DL Urine Glucose (UA) NEG (NEG) MG/DL Urine Ketones NEG (NEG) MG/DL Urine Blood NEG (NEG) Urine Nitrite NEG (NEG) Ur Leukocyte Esterase NEG (NEG) Urine RBC 0 (0) /HPF Urine WBC 0-2 (0-4) /HPF Ur Squamous Epith Cells 4+ /LPF Amorphous Sediment 4+ /LPF Urine Bacteria TRACE /LPF 03/21/21 Range/Units 19:42 WBC (4.8-10.8) X10*3/uL RBC (4.20-5.50) X10*6/uL Hgb (12.0-16.0) g/dl Hct (37-47) % MCV (80-98) fL MCH (27.0-33.0) pg MCHC (31.0-35.0) g/dl RDW (11.0-16.0) % Plt Count (160-400) X10*3/uL MPV (9.4-12.3) fL Immature Gran % (Auto) (0.0-0.4) % Neut % (Auto) (45-73) % Lymph % (Auto) (20-40) % [place] % (Auto) (2-11) % Eos % (Auto) (0-4) % Baso % (Auto) (0-2) % Lymph # (Auto) (1.2-4.9) X10*3/uL [place] # (Auto) (0.1-1.2) X10*3/uL Eos # (Auto) (0.0-0.4) X10*3/uL Baso # (Auto) (0.0-0.2) X10*3/uL Abs Immat Gran (auto) (0.00-0.03) X10*3/uL Absolute Neuts (auto) (2.0-8.3) X10*3/uL Absolute Nucleated RBC (0.0-0.012) X10*3/uL Nucleated RBC % (auto) (0.0-0.2) /100WBC PT (10.8-13.0) SEC INR (0.9-1.1) APTT (24.1-38.0) SEC Sodium (135-145) mmol/L Potassium (3.3-5.1) mmol/L Chloride (96-108) mmol/L Carbon Dioxide (22-29) mmol/L Anion Gap (12-20) BUN (9-16) mg/dL Creatinine (0.5-1.4) mg/dL Estim Creat Clear Calc Estimated GFR POC Glucose 142 H (60-115) mg/dL Random Glucose (60-115) mg/dL Calcium (8.4-10.2) mg/dL Total Bilirubin (0.0-1.0) mg/dL AST (5-31) U/L ALT (0-31) U/L Alkaline Phosphatase (39-117) U/L Troponin I High Sens (<3.5-17.0) ng/L Total Protein (6.5-8.0) g/dL Albumin (3.5-5.0) g/dL Urine Color Urine Appearance Urine pH (5.0-8.0) Ur Specific Howe (1.005-1.025) Urine Protein (NEG-TRACE) MG/DL Urine Glucose (UA) (NEG) MG/DL Urine Ketones (NEG) MG/DL Urine Blood (NEG) Urine Nitrite (NEG) Ur Leukocyte Esterase (NEG) Urine RBC (0) /HPF Urine WBC (0-4) /HPF Ur Squamous Epith Cells /LPF Amorphous Sediment /LPF Urine Bacteria /LPF <PORSHA Stinson - Last Filed: 03/21/21 21:16> ECG Data Attestation: I personally reviewed and interpreted this ECG as follows: <Kate Sesay PA-C - Last Filed: 03/21/21 17:55> Interpretation: NSR 69BPM, no acute changes, verified by Dr Thakkar <Kate Sesay PA-C - Last Filed: 03/21/21 17:55> Discharge Plan Discharge Clinical Impression: Spondylosis of cervical spine, Dizziness, nonspecific <Kate Sesay PA-C - Last Filed: 03/21/21 17:55> Patient Disposition: Home, Self-Care <Kate Sesay PA-C - Last Filed: 03/21/21 17:55> Instructions: Cervical Spinal Stenosis (ED) <Kate Sesay PA-C - Last Filed: 03/21/21 17:55> Additional Instructions: I have sent a prescription to your pharmacy for meclizine, the medication that helped you with her dizziness in the emergency department today. Please take it as needed, as directed. If the medication works well for you, please follow-up with your primary care doctor to assess if refills are warranted for the future. It is important you follow-up with your primary care doctor regarding your spondylosis of your cervical spine at C6 and C7, you may need a referral to a clinical data specialist or physical therapy, which whichever your PCP feels is appropriate. <Kate Sesay PA-C - Last Filed: 03/21/21 17:55> Prescriptions: New meclizine 25 mg tablet 25 mg PO BID PRN (Reason: dizziness or vertigo) Qty: 10 RF: 0 No Action diazepam 2 mg tablet 2 mg PO TID PRN (Reason: muscle spasm) Qty: 10 RF: 0 tramadol 50 mg tablet 50 mg PO Q8H PRN (Reason: pain) Qty: 10 RF: 0 amlodipine 10 mg tablet 10 mg PO DAILY RF: 0 cinnamon bark [Cinnamon] 500 mg capsule 500 mg PO DAILY RF: 0 fluticasone propionate 50 mcg/actuation spray,suspension 0 mcg intranasal RF: 0 gabapentin 300 mg capsule 300 mg PO BEDTIME RF: 0 glipizide 5 mg tablet 5 mg PO QAM RF: 0 hydralazine 50 mg tablet 50 mg PO BID RF: 0 metoprolol succinate 100 mg tablet extended release 24 hr 100 mg PO BEDTIME RF: 0 nystatin 100,000 unit/gram cream topical BID RF: 0 rosuvastatin 5 mg tablet 5 mg PO DAILY RF: 0 Fish Oil 340-1,000 mg capsule 1 cap PO BID RF: 0 prednisone 20 mg tablet 20 mg PO BID RF: 0 furosemide 20 mg tablet 20 mg PO QAM RF: 0 <Kate Sesay PA-C - Last Filed: 03/21/21 17:55> Print Language: Nepalese <Kate Sesay PA-C - Last Filed: 03/21/21 17:55>
--- NOTE | 2021-03-21 12:52 | ECG_ITS ---
Test Reason : DIZZYNESS Blood Pressure : / mmHG Vent. Rate : 069 BPM Atrial Rate : 069 BPM P-R Int : 142 ms QRS Dur : 098 ms QT Int : 432 ms P-R-T Axes : -12 -18 015 degrees QTc Int : 462 ms Normal sinus rhythm Normal ECG When compared with ECG of 17-JAN-2021 07:16, No significant change was found Referred By: Kate Sesay Electronically Signed By:Samuel Jason
[2021-03-21 14:14] LABS: Basophils Percent Auto 0.4 % (0-2); Eosinophils Absolute Auto 0.1 X10*3/uL (0.0-0.4); Eosinophils Percent Auto 1.1 % (0-4); Hematocrit 39.5 % (37-47); Hemoglobin 13.4 g/dl (12.0-16.0); Imm Gran Abs Auto 0.04 X10*3/uL (0.00-0.03); Imm Gran Pct Auto 0.4 % (0.0-0.4); Lymphocytes Absolute Auto 1.6 X10*3/uL (1.2-4.9); Lymphocytes Percent Auto 16.1 % (20-40); MANUAL DIFF FLAG NO; Mean Corpuscular HGB Conc 33.9 g/dl (31.0-35.0); Mean Corpuscular Hemoglobin 28.9 pg (27.0-33.0); Mean Corpuscular Volume 85.3 fL (80-98); Mean Platelet Volume 9.6 fL (9.4-12.3); Monocytes Percent Auto 9.7 % (2-11); Neutrophils Absolute Auto 7.3 X10*3/uL (2.0-8.3); Neutrophils Percent Auto 72.3 % (45-73); Platelet Count 244 X10*3/uL (160-400); Red Blood Count 4.63 X10*6/uL (4.20-5.50); Red Cell Distribution Width 13.7 % (11.0-16.0)
[2021-03-21 14:22] LABS: Prothrombin Time 11.8 SEC (10.8-13.0)
--- NOTE | 2021-03-21 14:24 | PC.NURSE ---
Pt alert, oriented, neuros intact, VSS, LSCTA. Pt reports dizziness x2wks, neck pain started 3days ago, denies n/v/d. no falls/injuries. NSR on monitor. Labs drawn, results pending. at bedside.
[2021-03-21 14:36] LABS: Alanine Aminotransferase 25 U/L (0-31); Albumin Level 4.3 g/dL (3.5-5.0); Alkaline Phosphatase 79 U/L (39-117); Anion Gap 16 (12-20); Aspartate Amino Transferase 28 U/L (5-31); Bilirubin Total 1.1 mg/dL (0.0-1.0); Blood Urea Nitrogen 16 mg/dL (9-16); Calcium 9.8 mg/dL (8.4-10.2); Carbon Dioxide 24 mmol/L (22-29); Chloride 104 mmol/L (96-108); Creatinine Clr Calc Pharmacy 68.3; Estimated Glomerular Filt Rate 59; Glucose Random 123 mg/dL (60-115); Potassium 3.7 mmol/L (3.3-5.1); Sodium 140 mmol/L (135-145)
[2021-03-21 14:43] LABS: Partial Thromboplastin Time 48.1 SEC (24.1-38.0)
[2021-03-21 14:46] LABS: Troponin-I High Sensitivity 18.3 ng/L (<3.5-17.0)
[2021-03-21] MEDS: Meclizine HCl 25 MG TABLET PO (14:54)
[2021-03-21] MEDS: traMADoL HCL 50 MG TABLET 25 MG PO (14:54)
[2021-03-21 16:18] LABS: Glucose Urine UA NEG (NEG); Leukocyte Esterase Urine NEG (NEG); Nitrite Urine NEG (NEG); PH 6.5 (5.0-8.0); Specific Gravity - Urine 1.015 (1.005-1.025); Urine Blood NEG (NEG); Urine Ketones NEG (NEG); Urine Protein 1+ MG/DL (NEG-TRACE)
[2021-03-21 16:19] LABS: Appearance Urine HAZY; Color Urine YELLOW
[2021-03-21 16:29] LABS: Bacteria Urine TRACE /LPF; RBC Urine 0 /HPF (0); Squamous Epithelial Cell Urine 4+ /LPF; WBC Urine 0-2 /HPF (0-4)
[2021-03-21 16:30] LABS: Amorphous Sediment Urine 4+ /LPF
[2021-03-21] MEDS: Cyclobenzaprine HCl 5 MG TABLET PO (17:19)
[2021-03-21 17:40] LABS: Troponin-I High Sensitivity 18.8 ng/L (<3.5-17.0)
[2021-03-21] MEDS: predniSONE 20 MG TABLET 40 MG PO (18:11)
[2021-03-21] MEDS: Lidocaine 4 % Patch ADH..PATCH 1 PATCH TRANSDERMA (18:12)
[2021-03-21 19:48] LABS: Glucose, Whole Blood 142 mg/dL (60-115)
== END 2021-03-21 21:55 | disposition home or self-care (01) ==
PROVIDERS: Physician Assistant; Emergency Provider Emergency Medicine Emergency Medical Services; PCP Family Medicine
DX: M47.812 Spondylosis without myelopathy or radiculopathy, cervical region (principal); R42 Dizziness and giddiness; E11.22 Type 2 diabetes mellitus with diabetic chronic kidney disease; I12.0 Hypertensive chronic kidney disease with stage 5 chronic kidney disease or end stage renal disease; N18.6 End stage renal disease; K21.9 Gastro-esophageal reflux disease without esophagitis; Z79.02 Long term (current) use of antithrombotics/antiplatelets; Z79.899 Other long term (current) drug therapy
CPT/HCPCS: 36415; 72125; 80053; 81001; 82947; 84484; 85025; 85610; 85730; 93005; 99284; 99285

== ENCOUNTER 2021-04-02 14:52 | Outpatient (REF) | payer MEDICARE, SELFPAY ==
--- NOTE | ~2021-04-02 | MR_ITS ---
EXAMINATION: MR BRAIN WITHOUT AND WITH CONTRAST CLINICAL INFORMATION: Vertigo. Left acoustic neuroma. COMPARISON: Head CT 01/30/2016. TECHNIQUE: Multiplanar, multisequence imaging of the brain was performed before and after the intravenous administration of 10 mL of Gadavist. FINDINGS: The inner ear structures including the cochlea, vestibules, and semicircular canals exhibit preserved CSF signal intensity with no pathologic enhancement. The vestibular aqueducts are not enlarged. Cranial nerves VII and VIII complexes are normal in morphology. No enhancing cerebellopontine angle/retrocochlear lesion. There is no intracranial mass or abnormal intracranial enhancement. There is no acute infarction. There is no intracranial hemorrhage or extra axial collection. The ventricles, sulci, and basilar cisterns are normal in size and configuration. Moderate patchy foci of T2/FLAIR hyperintensity are seen in the bilateral cerebral white matter most compatible with chronic microangiopathy. The flow voids of the major intracranial arteries appear intact. The bones and extracranial soft tissues are within normal limits. There is mild paranasal sinus mucosal thickening without fluid levels. MR/MR head/brain wo/w con IMPRESSION: - No vestibular schwannoma or retrocochlear lesion. - No mass lesion, acute infarction, or abnormal intracranial enhancement.
== END 2021-04-02 14:53 | disposition home or self-care (01) ==
LOC: HO.MRI 14:52
PROVIDERS: Visit Provider Otolaryngology
DX: H81.4 Vertigo of central origin (principal); D33.3 Benign neoplasm of cranial nerves
CPT/HCPCS: 70553; A9585

== ENCOUNTER 2021-04-08 13:18 | Outpatient (REF) | payer MEDICARE, SELFPAY ==
--- NOTE | ~2021-04-08 | MR_ITS ---
EXAMINATION: MR BREAST WITHOUT AND WITH CONTRAST, BILATERAL CLINICAL INFORMATION: High-risk screening. History right ADH. COMPARISON: No previous breast MRI. Mammogram 02/23/2021 TECHNIQUE: Imaging was performed with a dedicated breast coil. Prior to the administration of contrast, bilateral axial T1 and bilateral axial T2 weighted sequences were obtained. After the uneventful administration of?10 mL of Gadavist, dynamic contrast-enhanced VIBRANT series through the breasts in the axial plane were performed. Subtracted images were performed and reviewed. A delayed sagittal sequence through both breasts was acquired. Additionally, CAD post-processing, including maximum intensity projections, 3-D reconstructions and kinetic analysis, were performed an independent workstation and reviewed by the interpreting radiologist is a portion of this exam. FINDINGS: The patient's fibroglandular tissue demonstrates mild background enhancement. LEFT BREAST: Numerous scattered foci of enhancement are present. No definite suspicious nonmasslike or masslike enhancement. No abnormal skin thickening or nipple retraction. No abnormal architectural distortion. Review of the T2 weighted images demonstrates no fibrocystic changes or dilated ducts. Review of kinetic images reveals no additional findings. RIGHT BREAST: Architectural distortion in the upper outer quadrant at the site of previous excisional biopsy. Associated low-level enhancement. Small 6 mm enhancing mass with associated biopsy clip artifact consistent with prior biopsy fibroadenoma. Finding demonstrates increased signal intensity on the T2-weighted images. Scattered foci of enhancement, similar to contralateral breast. No suspicious masslike or non-masslike enhancement. No abnormal skin thickening or nipple retraction. No abnormal architectural distortion. Review of the T2 weighted images demonstrates no fibrocystic changes or dilated ducts. Review of kinetic images reveals no additional findings. There is no suspicious internal mammary chain or axillary adenopathy. Limited views of the chest and abdomen are unremarkable. MR/MR breast BI wo/w con IMPRESSION: 1. Evolving surgical excisional site in the upper outer right breast. 2. No convincing MR specific evidence of malignancy in either breast. ASSESSMENT: LEFT BREAST: BI-RADS 2 - Benign Findings. RIGHT BREAST: BI-RADS 2 - Benign Findings. RECOMMENDATIONS: Clinical follow-up. Continued annual mammographic surveillance. Further breast MRI as risk factors dictate.
== END 2021-04-08 13:19 | disposition home or self-care (01) ==
LOC: HO.MRI 13:18
PROVIDERS: Visit Provider Family Medicine
DX: Z12.39 Encounter for other screening for malignant neoplasm of breast (principal); Z87.898 Personal history of other specified conditions; N18.6 End stage renal disease; Z99.2 Dependence on renal dialysis
CPT/HCPCS: 77049; A9585

== ENCOUNTER 2021-04-27 09:34 | Outpatient (REF) | payer MEDICARE, SELFPAY ==
[2021-04-27 10:46] LABS: Blood Urea Nitrogen 11 mg/dL (9-16); Estimated Glomerular Filt Rate 53
== END 2021-04-27 09:35 | disposition home or self-care (01) ==
LOC: HO.LAB 09:34
PROVIDERS: PCP Family Medicine; Visit Provider Otolaryngology
DX: R42 Dizziness and giddiness (principal)
CPT/HCPCS: 36415; 82565; 84520

== ENCOUNTER → 2021-05-25 10:57 | Outpatient (BNVA) | payer MEDICARE, SELFPAY | PROVIDERS: PCP Family Medicine; Visit Provider Nurse Practitioner Family | CPT/HCPCS: Q3014 ==

== ENCOUNTER 2021-06-11 14:00 | Outpatient (RCR) | payer MEDICARE, SELFPAY | END 2021-06-14 14:23 | disposition home or self-care (01) | LOC: HO.PT 14:00 | PROVIDERS: PCP Family Medicine; Visit Provider Physician Assistant | DX: M50.322 Other cervical disc degeneration at C5-C6 level (principal) | CPT/HCPCS: 97035; 97110; 97112; 97140; 97161; 97530 ==

== ENCOUNTER → 2021-08-17 10:38 | Outpatient (BNVA) | payer MEDICARE, SELFPAY | PROVIDERS: PCP Family Medicine; Referring Provider Family Medicine; Visit Provider Nurse Practitioner Family | DX: Z13.89 Encounter for screening for other disorder (principal) | CPT/HCPCS: Q3014 ==

== ENCOUNTER 2021-08-19 11:56 | Outpatient (REF) | payer MEDICARE, SELFPAY ==
[2021-08-19 13:01] LABS: Basophils Percent Auto 0.5 % (0-2); Imm Gran Abs Auto 0.02 X10*3/uL (0.00-0.03); Imm Gran Pct Auto 0.3 % (0.0-0.4); MANUAL DIFF FLAG SCAN; PLT CLUMP 1; Red Cell Distribution Width 13.5 % (11.0-16.0); SCAN SMEAR FLAG 1
[2021-08-19 13:03] LABS: Eosinophils Absolute Auto 0.1 X10*3/uL (0.0-0.4); Eosinophils Percent Auto 1.8 % (0-4); Hematocrit 40.3 % (37.0-47.0); Hemoglobin 13.6 g/dl (12.0-16.0); Lymphocytes Absolute Auto 1.6 X10*3/uL (1.2-4.9); Lymphocytes Percent Auto 27.1 % (20-40); Mean Corpuscular HGB Conc 33.7 g/dl (31.0-35.0); Mean Corpuscular Hemoglobin 28.4 pg (27.0-33.0); Mean Corpuscular Volume 84.1 fL (80.0-98.0); Mean Platelet Volume 11.1 fL (9.4-12.3); Monocytes Absolute Auto 0.7 X10*3/uL (0.1-1.2); Monocytes Percent Auto 10.7 % (2-11); Neutrophils Percent Auto 59.6 % (45-73); Platelet Count 231 X10*3/uL (160-400); Red Blood Count 4.79 X10*6/uL (4.20-5.50); White Blood Count 6.1 X10*3/uL (4.8-10.8)
[2021-08-19 13:21] LABS: Appearance Urine CLEAR; Color Urine STRAW; Glucose Urine UA NEG (NEG); Leukocyte Esterase Urine NEG (NEG); Nitrite Urine NEG (NEG); Urine Blood NEG (NEG); Urine Ketones NEG (NEG); Urine Protein NEG (NEG-TRACE)
[2021-08-19 13:22] LABS: SLIDE REVIEW VERIFIED
[2021-08-19 13:32] LABS: Albumin Level 4.5 g/dL (3.5-5.0); Anion Gap 15 (12-20); Blood Urea Nitrogen 14 mg/dL (9-16); Calcium 9.6 mg/dL (8.4-10.2); Carbon Dioxide 27 mmol/L (22-29); Chloride 104 mmol/L (96-108); Estimated Glomerular Filt Rate 52; Magnesium 1.8 mg/dL (1.6-2.6); Phosphorus 3.7 mg/dL (2.7-4.5); Potassium 3.4 mmol/L (3.3-5.1); Sodium 143 mmol/L (135-145)
[2021-08-19 13:49] LABS: Creatinine Urine 37.24 mg/dL; Microalbum/Creatinine Ratio Ur 13.4 ug/mg cr; Total Protein Urine Random < 7 mg/dL (<12)
[2021-08-20 14:12] LABS: Calcium (PTHI) 9.7 mg/dL (8.6-10.4); PTHI 133 pg/mL (14-64)
== END 2021-08-19 11:57 | disposition home or self-care (01) ==
LOC: HO.LAB 11:56
PROVIDERS: Visit Provider Internal Medicine Nephrology
DX: M1A.00X0 Idiopathic chronic gout, unspecified site, without tophus (tophi) (principal); I12.9 Hypertensive chronic kidney disease with stage 1 through stage 4 chronic kidney disease, or unspecified chronic kidney disease; N18.31 Chronic kidney disease, stage 3a; E11.22 Type 2 diabetes mellitus with diabetic chronic kidney disease; E11.21 Type 2 diabetes mellitus with diabetic nephropathy
CPT/HCPCS: 36415; 80051; 81003; 82040; 82043; 82306; 82310; 82565; 83735; 83970; 84100; 84156; 84520; 85025; 87086

== ENCOUNTER 2021-10-12 12:41 | Outpatient (REF) | payer MEDICARE, SELFPAY ==
[2021-10-12 14:59] LABS: IDNOW Serial# 16C4AD1C
[2021-10-12 15:00] LABS: COVID-19 Test Negative (Negative)
== END 2021-10-12 12:42 | disposition home or self-care (01) ==
LOC: HO.LAB 12:41
PROVIDERS: Visit Provider Internal Medicine
DX: Z20.822 Contact with and (suspected) exposure to COVID-19 (principal)
CPT/HCPCS: 36415; 87635; C9803

== ENCOUNTER → 2022-02-03 15:05 | Outpatient (BNVA) | payer MEDICARE, SELFPAY | PROVIDERS: PCP Family Medicine; Visit Provider Nurse Practitioner Family | DX: G47.33 Obstructive sleep apnea (adult) (pediatric) (principal) | CPT/HCPCS: Q3014 ==

== ENCOUNTER 2022-02-09 09:38 | Emergency (ER) | payer MEDICARE, SELFPAY ==
--- NOTE | ~2022-02-09 | XR_ITS ---
EXAMINATION: XR CHEST CLINICAL INFORMATION: Left chest and back pain. COMPARISON: 01/17/2021 chest radiographs. TECHNIQUE: 2 views of the chest were obtained. FINDINGS: Mild linear markings are seen in the lower lung elias bilaterally. The upper lung elias are clear. There are no pleural effusions. The heart and mediastinal structures are unremarkable. XR/XR chest 2V IMPRESSION: Mild lower lung linear atelectasis versus scarring represents mild interval increase in the previous study. No overt CHF or pneumonia.
--- NOTE | ~2022-02-09 | NM_ITS ---
EXAMINATION: NM LUNG IMAGE PERFUSION CLINICAL INFORMATION: Elevated d-dimer. COMPARISON: None TECHNIQUE: Following intravenous administration of 4 mCi of 99m Tc MAA, imaging of both lungs were obtained multiple projections. Ventilation study was not performed. FINDINGS: On perfusion scan there is normal isotope activity seen in all segments of the lungs without any focal segmental or subsegmental defect. NM/NM pul perfusion IMPRESSION: Perfusion defects seen to suspect any PE this time.
--- NOTE | 2022-02-09 09:48 | ED_ITS ---
HPI - Back Pain/Injury General Chief Complaint: Dyspnea Stated Complaint: Back pain Time Seen by Provider: 02/09/22 09:45 Source: patient Mode of arrival: ambulatory Limitations: no limitations History of Present Illness HPI Narrative: 66 y/o male with history of SIMEON and diabetes who presents to the ER with left up per back pain that started 3 days ago. She states the pain is constant, sharp and worse with movement and deep breaths. Denies any injury. She was seen by her PCP yesterday and they started her on a muscle relaxer which she reports no improvement with. She states the pain wraps around to under her left breast at times. She denies any SOB, nausea, diaphoresis or chest pain. MD elicited complaint: back pain Onset (ago): day(s) (3) Timing: constant Severity: severe Pain scale (0-10): 10 Similar Symptoms Previously: No Quality: sharp Location: left upper back Radiation: chest Exacerbating factors: movement and deep breaths Relieving factors: immobilization Context: unknown Associated symptoms: denies other symptoms Treatments prior to arrival: acetaminophen Work related injury: No Related Data Home Medications Medication Instructions Recorded Confirmed amlodipine 10 mg tablet 10 mg PO DAILY 09/22/20 02/03/22 cinnamon bark 500 mg capsule 500 mg PO DAILY 09/22/20 02/03/22 (Cinnamon) fluticasone propionate 50 0 mcg INTRANASAL 09/22/20 02/03/22 mcg/actuation nasal spray,suspension furosemide 20 mg tablet 20 mg PO QAM 09/22/20 02/03/22 gabapentin 300 mg capsule 300 mg PO BEDTIME 09/22/20 02/03/22 glipizide 5 mg tablet 5 mg PO QAM 09/22/20 02/03/22 hydralazine 50 mg tablet 50 mg PO BID 09/22/20 02/03/22 metoprolol succinate 100 mg 100 mg PO BEDTIME 09/22/20 02/03/22 tablet,extended release 24 hr nystatin 100,000 unit/gram topical TOPICAL BID 09/22/20 02/03/22 cream omega-3 fatty acids-fish oil 340 1 cap PO BID 09/22/20 02/03/22 mg-1,000 mg capsule prednisone 20 mg tablet 20 mg PO BID 09/22/20 02/03/22 rosuvastatin 5 mg tablet 5 mg PO DAILY 09/22/20 02/03/22 Previous Rx's Medication Instructions Recorded diazepam 2 mg tablet 2 mg PO TID PRN #10 tab 08/28/20 tramadol 50 mg tablet 50 mg PO Q8H PRN #10 tab 01/17/21 cyclobenzaprine 10 mg tablet 10 mg PO TID PRN #15 tab 03/21/21 lidocaine 4 % topical patch 1 patch TOPICAL BID PRN #10 ea 03/21/21 meclizine 25 mg tablet 25 mg PO BID PRN #10 tab 03/21/21 prednisone 20 mg tablet 40 mg PO DAILY #10 tab 03/21/21 tramadol 50 mg tablet 50 mg PO TID PRN #9 tab 03/21/21 lidocaine 5 % topical patch 1 patch TOPICAL DAILY #15 ea 02/09/22 tramadol 50 mg tablet 50 mg PO Q8H PRN #8 tab 02/09/22 Allergies Allergy/AdvReac Type Severity Reaction Status Date / Time ibuprofen [IBUPROFEN] Allergy Intermediate HX KIDNEY Verified 02/03/22 15:02 FAILURE oxycodone [OXYCODONE] Allergy Unknown ITCHING, Verified 02/03/22 15:02 throat swells Review of Systems Review of Systems: Constitutional: No Fever, No Chills ENT/Mouth: No sore throat, No Rhinorrhea Cardiovascular: No Chest Pain, No SOB, No Orthopnea, No Edema Respiratory: No Cough, No Sputum Gastrointestinal: No Nausea, No Vomiting, No Diarrhea, No abdominal Pain Genitourinary: No Dysuria, No Urinary Frequency, No Hematuria Musculoskeletal: No joint pain, + Myalgias Skin: No Skin Lesions, No rash Neuro: No Weakness, No Numbness, No Dizziness, No Headache Psych: + Anxiety/Panic, No Depression Heme/Lymph: No Bruising, No Lymphadenopathy PMFSH Past Medical History Attestation statement: The following information was validated with the patient. Source: unable to obtain Medical History (Updated 02/09/22 @ 14:56 by PORSHA Kenyon) CKD (chronic kidney disease) Diabetes GERD (gastroesophageal reflux disease) Gout Hypertension Sleep disorder Surgical History H/O knee surgery H/O right breast biopsy Hx of hysterectomy Family History Family History Mother No problems noted. Father No problems noted. Social History Social History Household Members: None Alcohol intake: never Patient Tobacco Use Status: Never used Tobacco Use of substances other than those prescribed or required for medical reasons: No Advance Directives: No Advance Directives Information Provided: Yes Current occupational status: disabled Physical Exam Vital Signs: Vital Signs: Last Vital Signs Temp 97.7 F 02/09/22 14:20 Pulse 86 02/09/22 14:20 Resp 16 02/09/22 14:20 BP 148/75 H 02/09/22 14:20 Pulse Ox 95 02/09/22 14:20 BMI result Body Mass Index 32.4 Appearance: Alert. Oriented X3. No acute distress. Eyes: Pupils equal, round and reactive to light. ENT: Pharynx normal. Neck: Normal inspection. Neck supple. CVS: Normal heart rate and rhythm. Pulses normal. Respiratory: No respiratory distress. Breath sounds normal. Abdomen: Soft and nontender. +BS x4 Back: left upper back with soft tissue tenderness and palpable spasm medial and inferior to the scapula. No midline tenderness Skin: Skin warm and dry. Normal skin color. Normal skin turgor. No rashes. Extremities: No lower extremity edema. Neuro: Oriented X 3. No motor deficit. No sensory deficit. Course Course Course Narrative: 66 y/o female presenting with nontraumatic left upper back pain x3 days. No relief with muscle relaxer. Palpable muscle knot on exam that is mobile and tender. Given her pain is severe and wraps around to her chest will rule out ACS and PE with EKG and DDIMER although less likely. Reevaluation(s) Reevaluation #1: D-dimer significantly elevated 2668. Troponin 30 --> 27. Will get CTA to rule out PE. No evidence of DVT on examination. Reevaluation #2: Unable to get CTA due to no IV access. Will get VQ scan instead, d/w Dr. Martinez. Reevaluation #3: Wet read from VQ shows no lobar or segmental perfusion defects. Pain is improved with a dose of tramadol. She is stable for discharge with plan to follow up with PCP. MDM - Back Pain/Injury Medical Records Attestation: I reviewed the patient's medical records. Lab Data Attestation: I reviewed the patient's lab results. Result diagrams: 02/09/22 10:48 02/09/22 10:48 Labs: Lab Results 02/09/22 02/09/22 02/09/22 Range/Units 10:48 10:48 10:48 WBC 9.2 (4.8-10.8) X10*3/uL RBC 4.79 (4.20-5.50) X10*6/uL Hgb 13.9 (12.0-16.0) g/dl Hct 40.5 (37.0-47.0) % MCV 84.6 (80.0-98.0) fL MCH 29.0 (27.0-33.0) pg MCHC 34.3 (31.0-35.0) g/dl RDW 13.8 (11.0-16.0) % Plt Count 257 (160-400) X10*3/uL MPV 9.7 (9.4-12.3) fL Immature Gran % (Auto) 0.2 (0.0-0.4) % Neut % (Auto) 87.1 H (45-73) % Lymph % (Auto) 9.2 L (20-40) % Cavalier % (Auto) 3.1 (2-11) % Eos % (Auto) 0.1 (0-4) % Baso % (Auto) 0.3 (0-2) % Lymph # (Auto) 0.8 L (1.2-4.9) X10*3/uL Cavalier # (Auto) 0.3 (0.1-1.2) X10*3/uL Eos # (Auto) 0.0 (0.0-0.4) X10*3/uL Baso # (Auto) 0.0 (0.0-0.2) X10*3/uL Abs Immat Gran (auto) 0.02 (0.00-0.03) X10*3/uL Absolute Neuts (auto) 8.0 (2.0-8.3) x10*3/uL Absolute Nucleated RBC 0.000 (0.0-0.012) X10*3/uL Nucleated RBC % (auto) 0.0 (0.0-0.2) /100WBC D-Dimer High Sensitivty 2668 NG/ML Sodium 141 (135-145) mmol/L Potassium 3.6 (3.3-5.1) mmol/L Chloride 106 (96-108) mmol/L Carbon Dioxide 21 L (22-29) mmol/L Anion Gap 18 (12-20) BUN 14 (9-16) mg/dL Creatinine 1.06 (0.5-1.4) mg/dL Estim Creat Clear Calc 57.7 Estimated GFR 52 Random Glucose 153 H (60-115) mg/dL Calcium 10.2 D (8.4-10.2) mg/dL Troponin I High Sens (<3.5-17.0) ng/L 02/09/22 02/09/22 Range/Units 10:48 13:20 WBC (4.8-10.8) X10*3/uL RBC (4.20-5.50) X10*6/uL Hgb (12.0-16.0) g/dl Hct (37.0-47.0) % MCV (80.0-98.0) fL MCH (27.0-33.0) pg MCHC (31.0-35.0) g/dl RDW (11.0-16.0) % Plt Count (160-400) X10*3/uL MPV (9.4-12.3) fL Immature Gran % (Auto) (0.0-0.4) % Neut % (Auto) (45-73) % Lymph % (Auto) (20-40) % Cavalier % (Auto) (2-11) % Eos % (Auto) (0-4) % Baso % (Auto) (0-2) % Lymph # (Auto) (1.2-4.9) X10*3/uL Cavalier # (Auto) (0.1-1.2) X10*3/uL Eos # (Auto) (0.0-0.4) X10*3/uL Baso # (Auto) (0.0-0.2) X10*3/uL Abs Immat Gran (auto) (0.00-0.03) X10*3/uL Absolute Neuts (auto) (2.0-8.3) x10*3/uL Absolute Nucleated RBC (0.0-0.012) X10*3/uL Nucleated RBC % (auto) (0.0-0.2) /100WBC D-Dimer High Sensitivty NG/ML Sodium (135-145) mmol/L Potassium (3.3-5.1) mmol/L Chloride (96-108) mmol/L Carbon Dioxide (22-29) mmol/L Anion Gap (12-20) BUN (9-16) mg/dL Creatinine (0.5-1.4) mg/dL Estim Creat Clear Calc Estimated GFR Random Glucose (60-115) mg/dL Calcium (8.4-10.2) mg/dL Troponin I High Sens 30.4 H 28.7 H (<3.5-17.0) ng/L ECG Data Attestation: I personally reviewed and interpreted this ECG as follows: ECG interpretation date: 02/09/22 ECG interpretation time: 10:37 Interpretation: normal sinus rhythm, HR 83 bpm, normal QRS, no ST segment elevations or depressions Critical Care Time Critical Care Time Critical Care Time: No Discharge Plan Discharge Clinical Impression: Musculoskeletal back pain Patient Disposition: Home, Self-Care Instructions: Back Pain (ED) Additional Instructions: Your lab workup today was unremarkable. Your imaging did not show any blood clots in your lungs. Your main is most likely due to muscle strain and spasm. Take the prescribed medication as needed for severe pain - do not drive after taking this medication. Take Tylenol 975 mg every 6 hours Use heat and/or ice to the area as needed for pain. Gently massage the area to help loosen the muscles. Follow up with your doctor in the next 1 week. If you develop new or worsening symptoms call 911 or come back to the ER for further evaluation. Prescriptions: New tramadol 50 mg tablet 50 mg PO Q8H PRN (Reason: severe pain (scale score 7-10)) Qty: 8 0RF lidocaine 5 % adhesive patch,medicated 1 patch topical DAILY Qty: 15 0RF Rx Instructions: leave on most painful area for up to 12 hrs No Action diazepam 2 mg tablet 2 mg PO TID PRN (Reason: muscle spasm) Qty: 10 0RF tramadol 50 mg tablet 50 mg PO Q8H PRN (Reason: pain) Qty: 10 0RF meclizine 25 mg tablet 25 mg PO BID PRN (Reason: dizziness or vertigo) Qty: 10 0RF tramadol 50 mg tablet 50 mg PO TID PRN (Reason: pain) Qty: 9 0RF prednisone 20 mg tablet 40 mg PO DAILY Qty: 10 0RF cyclobenzaprine 10 mg tablet 10 mg PO TID PRN (Reason: pain) Qty: 15 0RF Rx Instructions: Side effect is drowsiness. Do not take at work or while driving. Do not take at the same time with tramadol. lidocaine 4 % adhesive patch,medicated 1 patch topical BID PRN (Reason: pain) Qty: 10 0RF amlodipine 10 mg tablet 10 mg PO DAILY 0RF cinnamon bark [Cinnamon] 500 mg capsule 500 mg PO DAILY 0RF fluticasone propionate 50 mcg/actuation spray,suspension 0 mcg intranasal 0RF gabapentin 300 mg capsule 300 mg PO BEDTIME 0RF glipizide 5 mg tablet 5 mg PO QAM 0RF hydralazine 50 mg tablet 50 mg PO BID 0RF metoprolol succinate 100 mg tablet extended release 24 hr 100 mg PO BEDTIME 0RF nystatin 100,000 unit/gram cream topical BID 0RF rosuvastatin 5 mg tablet 5 mg PO DAILY 0RF Fish Oil 340-1,000 mg capsule 1 cap PO BID 0RF prednisone 20 mg tablet 20 mg PO BID 0RF furosemide 20 mg tablet 20 mg PO QAM 0RF Referrals: Lauren Staton MD [Primary Care Provider] - 1 week ([facility] back pain, VQ neg)
[2022-02-09 09:51] VITALS: BP 149/70; PULSE 86; RESP 16; TEMP 36.6; O2SAT 97; BMI 32.4
--- NOTE | 2022-02-09 10:00 | ECG_ITS ---
Test Reason : dyspnea Blood Pressure : / mmHG Vent. Rate : 083 BPM Atrial Rate : 000 BPM P-R Int : 000 ms QRS Dur : 086 ms QT Int : 388 ms P-R-T Axes : 000 -19 020 degrees QTc Int : 455 ms Normal sinus rhythm Normal ECG When compared with ECG of 21-MAR-2021 13:33, No significant changes seen Referred By: Janine Reeves Electronically Signed By:CHELLY SOLIS
[2022-02-09] MEDS: traMADoL HCL 50 MG TABLET PO (10:27)
[2022-02-09 10:51] LABS: MANUAL DIFF FLAG NO
[2022-02-09 10:57] LABS: Basophils Percent Auto 0.3 % (0-2); Eosinophils Percent Auto 0.1 % (0-4); Hematocrit 40.5 % (37.0-47.0); Hemoglobin 13.9 g/dl (12.0-16.0); Imm Gran Abs Auto 0.02 X10*3/uL (0.00-0.03); Imm Gran Pct Auto 0.2 % (0.0-0.4); Lymphocytes Absolute Auto 0.8 X10*3/uL (1.2-4.9); Lymphocytes Percent Auto 9.2 % (20-40); Mean Corpuscular HGB Conc 34.3 g/dl (31.0-35.0); Mean Corpuscular Volume 84.6 fL (80.0-98.0); Mean Platelet Volume 9.7 fL (9.4-12.3); Monocytes Absolute Auto 0.3 X10*3/uL (0.1-1.2); Monocytes Percent Auto 3.1 % (2-11); Neutrophils Percent Auto 87.1 % (45-73); Platelet Count 257 X10*3/uL (160-400); Red Blood Count 4.79 X10*6/uL (4.20-5.50); Red Cell Distribution Width 13.8 % (11.0-16.0); White Blood Count 9.2 X10*3/uL (4.8-10.8)
[2022-02-09 11:04] LABS: D Dimer High Sensitivity 2668 NG/ML
[2022-02-09 11:13] LABS: Troponin-I High Sensitivity 30.4 ng/L (<3.5-17.0)
[2022-02-09 11:14] LABS: Anion Gap 18 (12-20); Blood Urea Nitrogen 14 mg/dL (9-16); Calcium 10.2 mg/dL (8.4-10.2); Carbon Dioxide 21 mmol/L (22-29); Chloride 106 mmol/L (96-108); Creatinine Clr Calc Pharmacy 57.7; Estimated Glomerular Filt Rate 52; Glucose Random 153 mg/dL (60-115); Potassium 3.6 mmol/L (3.3-5.1); Sodium 141 mmol/L (135-145)
[2022-02-09 11:36] VITALS: BP 146/71; PULSE 84; RESP 17; TEMP 36.7; O2SAT 96
[2022-02-09 13:46] LABS: Troponin-I High Sensitivity 28.7 ng/L (<3.5-17.0)
[2022-02-09 14:20] VITALS: BP 148/75; PULSE 86; RESP 16; TEMP 36.5; O2SAT 95
== END 2022-02-09 15:45 | disposition home or self-care (01) ==
PROVIDERS: Physician Assistant; Emergency Provider Emergency Medicine; PCP Family Medicine
DX: M54.6 Pain in thoracic spine (principal); R79.1 Abnormal coagulation profile; E11.22 Type 2 diabetes mellitus with diabetic chronic kidney disease; I12.9 Hypertensive chronic kidney disease with stage 1 through stage 4 chronic kidney disease, or unspecified chronic kidney disease; N18.9 Chronic kidney disease, unspecified; G47.33 Obstructive sleep apnea (adult) (pediatric)
CPT/HCPCS: 36415; 71046; 78580; 80048; 84484; 85025; 85379; 93005; 99285; A9540

== ENCOUNTER 2022-02-11 19:50 | Emergency (ER) | payer MEDICARE, SELFPAY ==
--- NOTE | ~2022-02-11 | CT_ITS ---
EXAMINATION: CT ABDOMEN AND PELVIS WITHOUT CONTRAST CLINICAL INFORMATION: Flank pain COMPARISON: 01/17/2021 TECHNIQUE: Multidetector volumetric imaging was performed from the superior aspect of the liver through the pubic symphysis. Sagittal and coronal reformatted images were obtained on the technologist's workstation. This CT examination was performed using dose optimization techniques as appropriate, variously including the following: *Automated exposure control *Adjustment of mA and/or kV according to patient size (this includes techniques or standardized protocols for targeted exams where dose is matched to indication/reason for exam; i.e. extremities or head) *Use of iterative reconstruction technique DLP: 677 mGy-cm FINDINGS: LUNG BASES: Linear band of platelike atelectasis or pleural parenchymal scarring are evident in the lung bases bilaterally. LIVER, GALLBLADDER, AND BILIARY TREE: The liver is normal in size, shape, and attenuation. No focal hepatic lesion or biliary ductal dilatation is present. Gallbladder is surgically absent. PANCREAS: Unremarkable. SPLEEN: Unremarkable. ADRENAL GLANDS: There is a 1.1 cm left adrenal nodule which is unchanged dating back multiple studies and has been previously characterized as an adrenal adenoma KIDNEYS AND URETERS: Lobular contour bilaterally. Mild right renal atrophy is unchanged. No nephrolithiasis or hydronephrosis. Trace left perinephric stranding, unchanged. Ureters are normal in course and caliber. Duplicated left renal collecting system is better seen on prior studies. BLADDER: Full. No wall thickening or bladder calcifications. GASTROINTESTINAL TRACT: Stomach, small bowel, and colon are normal in caliber. No bowel wall thickening or surrounding inflammatory changes. A few colonic diverticula are identified without evidence of acute diverticulitis. Appendix is normal. No intraperitoneal free fluid or free air. ABDOMINAL WALL: Tiny umbilical hernia is fat-containing. A loop of small bowel extends to the mouth of the hernia without significant involvement. No strangulation or obstruction. LYMPH NODES: Normal. VASCULAR: Atherosclerotic calcifications are present in the abdominal aorta and iliac arteries. No aneurysmal dilatation. PELVIC VISCERA: Status post hysterectomy. No ovarian lesions are identified. OSSEOUS STRUCTURES: Multilevel degenerative spondylosis in the lower lumbar spine with anterolisthesis of L4 on L5 and marked arthropathy. No acute fractures. Mild osteoarthritis in the hips and SI joints. CT/CT abdomen pelvis wo con IMPRESSION: 1. No acute intra-abdominal or intrapelvic abnormalities are identified. No nephrolithiasis or findings of obstructive uropathy. Mild asymmetric right renal atrophy, unchanged. 2. Unchanged 1.1 cm benign left adrenal adenoma. No recommend imaging follow-up. 3. Mild colonic diverticulosis without evidence of acute diverticulitis.
[2022-02-11 20:09] VITALS: BP 130/70; PULSE 76; RESP 20; TEMP 36.8; O2SAT 94; BMI 32.3
--- NOTE | 2022-02-11 21:27 | ED_ITS ---
HPI - Abdominal Pain General Chief Complaint: Abdominal Pain Stated Complaint: Flank pain Time Seen by Provider: 02/11/22 21:14 History of Present Illness HPI narrative: Patient is a 66-year-old female presents today with having flank pain started on the right side now on the left side. History of kidney problems in the no history kidney stone. The history diverticulitis. No history of abdominal surgery. No fever no chills no cough no congestion or respiratory symptoms. No history of abdominal aortic aneurysm. No dizziness. No nausea no vomiting. No diarrhea. Patient from home. The pain is sharp. Nonradiating. No diaphoresis. Related Data Home Medications Medication Instructions Recorded Confirmed amlodipine 10 mg tablet 10 mg PO DAILY 09/22/20 02/03/22 cinnamon bark 500 mg capsule 500 mg PO DAILY 09/22/20 02/03/22 (Cinnamon) fluticasone propionate 50 0 mcg INTRANASAL 09/22/20 02/03/22 mcg/actuation nasal spray,suspension furosemide 20 mg tablet 20 mg PO QAM 09/22/20 02/03/22 gabapentin 300 mg capsule 300 mg PO BEDTIME 09/22/20 02/03/22 glipizide 5 mg tablet 5 mg PO QAM 09/22/20 02/03/22 hydralazine 50 mg tablet 50 mg PO BID 09/22/20 02/03/22 metoprolol succinate 100 mg 100 mg PO BEDTIME 09/22/20 02/03/22 tablet,extended release 24 hr nystatin 100,000 unit/gram topical TOPICAL BID 09/22/20 02/03/22 cream omega-3 fatty acids-fish oil 340 1 cap PO BID 09/22/20 02/03/22 mg-1,000 mg capsule prednisone 20 mg tablet 20 mg PO BID 09/22/20 02/03/22 rosuvastatin 5 mg tablet 5 mg PO DAILY 09/22/20 02/03/22 Previous Rx's Medication Instructions Recorded diazepam 2 mg tablet 2 mg PO TID PRN #10 tab 08/28/20 tramadol 50 mg tablet 50 mg PO Q8H PRN #10 tab 01/17/21 cyclobenzaprine 10 mg tablet 10 mg PO TID PRN #15 tab 03/21/21 lidocaine 4 % topical patch 1 patch TOPICAL BID PRN #10 ea 03/21/21 meclizine 25 mg tablet 25 mg PO BID PRN #10 tab 03/21/21 prednisone 20 mg tablet 40 mg PO DAILY #10 tab 03/21/21 tramadol 50 mg tablet 50 mg PO TID PRN #9 tab 03/21/21 lidocaine 5 % topical patch 1 patch TOPICAL DAILY #15 ea 02/09/22 tramadol 50 mg tablet 50 mg PO Q8H PRN #8 tab 02/09/22 cyclobenzaprine 10 mg tablet 10 mg PO TID PRN #14 tab 02/11/22 oxycodone 5 mg tablet 5 mg PO Q8H PRN #7 tab 02/11/22 Allergies Allergy/AdvReac Type Severity Reaction Status Date / Time ibuprofen [IBUPROFEN] Allergy Intermediate HX KIDNEY Verified 02/03/22 15:02 FAILURE oxycodone [OXYCODONE] Allergy Unknown ITCHING, Verified 02/03/22 15:02 throat swells Review of Systems Review of Systems No fever no chills no cough no congestion or upper respiratory symptoms no diaphoresis positive abdominal pain in the bilateral flank area Yes all other systems are reviewed and are negative [facility] Past Medical History Attestation statement: The following information was validated with the patient. Medical History CKD (chronic kidney disease) Diabetes GERD (gastroesophageal reflux disease) Gout Hypertension Sleep disorder Surgical History H/O knee surgery H/O right breast biopsy Hx of hysterectomy Family History Family History Mother No problems noted. Father No problems noted. Social History Social History Household Members: None Alcohol intake: never Patient Tobacco Use Status: Never used Tobacco Advance Directives: No Advance Directives Information Provided: No Current occupational status: disabled Physical Exam ED Vital Signs: Vital Signs - 24 hr 02/11/22 20:09 02/11/22 22:56 Temperature 98.3 F 97.5 F Pulse Rate 76 74 Respiratory Rate 20 16 Blood Pressure 130/70 123/66 Pulse Oximetry 94 93 BMI result Body Mass Index 32.3 Appearance: Alert. Oriented X3. No acute distress. Eyes: Pupils equal, round and reactive to light. ENT: Pharynx normal. Neck: Normal inspection. Neck supple. No lymph nodes noted. No crepitus CVS: Normal heart rate and rhythm. Pulses normal. Normal S1 and S2 Respiratory: No respiratory distress. Breath sounds normal. No Wheezing. No rales Abdomen: Soft and nontender. No rigidity. No distention. good BS x4 Skin: Skin warm and dry. Normal skin color. Normal skin turgor. Extremities: No lower extremity edema. Neurovascular intact to all extremities. No Lacerations. No Rash Neuro: Oriented X 3. No motor deficit. No sensory deficit. Moving all extermities. No slurred speech MDM - Abdominal Pain MDM Narrative Medical decision making narrative: Patient's white count is normal. Electrolytes unremarkable. CT scan of the abdomen pelvis showed no acute findings. No obstruction no abscess no perforation no diverticulitis. Urine negative for infection. Will discharge patient home most likely cause of patient's pain is musculoskeletal. Stable condition. Medical Records Attestation: I reviewed the patient's medical records. Lab Data Attestation: I reviewed the patient's lab results. Result diagrams: 02/11/22 21:30 02/11/22 21:30 Labs: Lab Results 02/11/22 02/11/22 02/11/22 Range/Units 21:30 21:30 22:32 WBC 10.1 (4.8-10.8) X10*3/uL RBC 4.45 (4.20-5.50) X10*6/uL Hgb 12.8 (12.0-16.0) g/dl Hct 37.0 (37.0-47.0) % MCV 83.1 (80.0-98.0) fL MCH 28.8 (27.0-33.0) pg MCHC 34.6 (31.0-35.0) g/dl RDW 13.8 (11.0-16.0) % Plt Count 255 (160-400) X10*3/uL MPV 9.5 (9.4-12.3) fL Immature Gran % (Auto) 0.3 (0.0-0.4) % Neut % (Auto) 72.3 (45-73) % Lymph % (Auto) 16.9 L (20-40) % [place] % (Auto) 9.4 (2-11) % Eos % (Auto) 0.7 (0-4) % Baso % (Auto) 0.4 (0-2) % Lymph # (Auto) 1.7 (1.2-4.9) X10*3/uL [place] # (Auto) 1.0 (0.1-1.2) X10*3/uL Eos # (Auto) 0.1 (0.0-0.4) X10*3/uL Baso # (Auto) 0.0 (0.0-0.2) X10*3/uL Abs Immat Gran (auto) 0.03 (0.00-0.03) X10*3/uL Absolute Neuts (auto) 7.3 (2.0-8.3) x10*3/uL Absolute Nucleated RBC 0.000 (0.0-0.012) X10*3/uL Nucleated RBC % (auto) 0.0 (0.0-0.2) /100WBC Sodium 138 (135-145) mmol/L Potassium 3.5 (3.3-5.1) mmol/L Chloride 101 (96-108) mmol/L Carbon Dioxide 24 (22-29) mmol/L Anion Gap 17 (12-20) BUN 16 (9-16) mg/dL Creatinine 1.11 (0.5-1.4) mg/dL Estim Creat Clear Calc 55.1 Estimated GFR 49 Fasting Glucose 224 H (60-99) mg/dL Calcium 9.6 (8.4-10.2) mg/dL Total Bilirubin 0.7 (0.0-1.0) mg/dL AST 47 H D (5-31) U/L ALT 52 H (0-31) U/L Alkaline Phosphatase 102 D (39-117) U/L Total Protein 7.1 (6.5-8.0) g/dL Albumin 4.1 (3.5-5.0) g/dL Lipase 81 H (8-78) U/L Urine Color YELLOW Urine Appearance CLEAR Urine pH 7.0 (5.0-8.0) Ur Specific [place] 1.010 (1.005-1.025) Urine Protein NEG (NEG-TRACE) MG/DL Urine Glucose (UA) NEG (NEG) MG/DL Urine Ketones NEG (NEG) MG/DL Urine Blood NEG (NEG) Urine Nitrite NEG (NEG) Ur Leukocyte Esterase NEG (NEG) Urine RBC 1-4 (0) /HPF Urine WBC 1-4 (0-4) /HPF Ur Squamous Epith Cells 1+ /LPF Urine Bacteria 2+ /LPF Urine Mucus 2+ /LPF Discharge Plan Discharge Clinical Impression: Back pain Patient Disposition: Home, Self-Care Instructions: Back Pain (ED) Prescriptions: New cyclobenzaprine 10 mg tablet 10 mg PO TID PRN (Reason: pain) Qty: 14 0RF oxycodone 5 mg tablet 5 mg PO Q8H PRN (Reason: pain) Qty: 7 0RF No Action diazepam 2 mg tablet 2 mg PO TID PRN (Reason: muscle spasm) Qty: 10 0RF tramadol 50 mg tablet 50 mg PO Q8H PRN (Reason: pain) Qty: 10 0RF meclizine 25 mg tablet 25 mg PO BID PRN (Reason: dizziness or vertigo) Qty: 10 0RF tramadol 50 mg tablet 50 mg PO TID PRN (Reason: pain) Qty: 9 0RF prednisone 20 mg tablet 40 mg PO DAILY Qty: 10 0RF cyclobenzaprine 10 mg tablet 10 mg PO TID PRN (Reason: pain) Qty: 15 0RF Rx Instructions: Side effect is drowsiness. Do not take at work or while driving. Do not take at the same time with tramadol. lidocaine 4 % adhesive patch,medicated 1 patch topical BID PRN (Reason: pain) Qty: 10 0RF tramadol 50 mg tablet 50 mg PO Q8H PRN (Reason: severe pain (scale score 7-10)) Qty: 8 0RF lidocaine 5 % adhesive patch,medicated 1 patch topical DAILY Qty: 15 0RF Rx Instructions: leave on most painful area for up to 12 hrs amlodipine 10 mg tablet 10 mg PO DAILY 0RF cinnamon bark [Cinnamon] 500 mg capsule 500 mg PO DAILY 0RF fluticasone propionate 50 mcg/actuation spray,suspension 0 mcg intranasal 0RF gabapentin 300 mg capsule 300 mg PO BEDTIME 0RF glipizide 5 mg tablet 5 mg PO QAM 0RF hydralazine 50 mg tablet 50 mg PO BID 0RF metoprolol succinate 100 mg tablet extended release 24 hr 100 mg PO BEDTIME 0RF nystatin 100,000 unit/gram cream topical BID 0RF rosuvastatin 5 mg tablet 5 mg PO DAILY 0RF Fish Oil 340-1,000 mg capsule 1 cap PO BID 0RF prednisone 20 mg tablet 20 mg PO BID 0RF furosemide 20 mg tablet 20 mg PO QAM 0RF Referrals: Lauren Staton MD [Primary Care Provider] - Print Language: Mexican
[2022-02-11 21:35] LABS: MANUAL DIFF FLAG NO
[2022-02-11 21:36] LABS: Basophils Percent Auto 0.4 % (0-2); Eosinophils Absolute Auto 0.1 X10*3/uL (0.0-0.4); Eosinophils Percent Auto 0.7 % (0-4); Hemoglobin 12.8 g/dl (12.0-16.0); Imm Gran Abs Auto 0.03 X10*3/uL (0.00-0.03); Imm Gran Pct Auto 0.3 % (0.0-0.4); Lymphocytes Absolute Auto 1.7 X10*3/uL (1.2-4.9); Lymphocytes Percent Auto 16.9 % (20-40); Mean Corpuscular HGB Conc 34.6 g/dl (31.0-35.0); Mean Corpuscular Hemoglobin 28.8 pg (27.0-33.0); Mean Corpuscular Volume 83.1 fL (80.0-98.0); Mean Platelet Volume 9.5 fL (9.4-12.3); Monocytes Percent Auto 9.4 % (2-11); Neutrophils Absolute Auto 7.3 x10*3/uL (2.0-8.3); Neutrophils Percent Auto 72.3 % (45-73); Platelet Count 255 X10*3/uL (160-400); Red Blood Count 4.45 X10*6/uL (4.20-5.50); Red Cell Distribution Width 13.8 % (11.0-16.0); White Blood Count 10.1 X10*3/uL (4.8-10.8)
[2022-02-11 22:07] LABS: Alanine Aminotransferase 52 U/L (0-31); Albumin Level 4.1 g/dL (3.5-5.0); Alkaline Phosphatase 102 U/L (39-117); Anion Gap 17 (12-20); Aspartate Amino Transferase 47 U/L (5-31); Bilirubin Total 0.7 mg/dL (0.0-1.0); Blood Urea Nitrogen 16 mg/dL (9-16); Calcium 9.6 mg/dL (8.4-10.2); Carbon Dioxide 24 mmol/L (22-29); Chloride 101 mmol/L (96-108); Creatinine Clr Calc Pharmacy 55.1; Estimated Glomerular Filt Rate 49; Glucose Fasting 224 mg/dL (60-99); Lipase 81 U/L (8-78); Potassium 3.5 mmol/L (3.3-5.1); Sodium 138 mmol/L (135-145); Total Protein 7.1 g/dL (6.5-8.0)
[2022-02-11] MEDS: ondansetron HCL 4 MG/2 ML VIAL IVPUSH (22:30)
[2022-02-11] MEDS: HYDROmorphone HCl 0.5 MG/0.5 ML SYRINGE IVPUSH (22:31)
[2022-02-11 22:37] LABS: Appearance Urine CLEAR; Color Urine YELLOW; Glucose Urine UA NEG (NEG); Leukocyte Esterase Urine NEG (NEG); Nitrite Urine NEG (NEG); Urine Blood NEG (NEG); Urine Ketones NEG (NEG); Urine Protein NEG (NEG-TRACE)
[2022-02-11 22:47] LABS: Bacteria Urine 2+ /LPF; Mucus Urine 2+ /LPF; Squamous Epithelial Cell Urine 1+ /LPF
[2022-02-11 22:56] VITALS: BP 123/66; PULSE 74; RESP 16; TEMP 36.4; O2SAT 93
[2022-02-11 23:48] VITALS: BP 117/55; PULSE 70; RESP 20; TEMP 36.8; O2SAT 94
== END 2022-02-11 23:49 | disposition home or self-care (01) ==
PROVIDERS: Emergency Provider Emergency Medicine Emergency Medical Services; PCP Family Medicine
DX: M54.50 Low back pain, unspecified (principal); R10.9 Unspecified abdominal pain; Z79.899 Other long term (current) drug therapy
CPT/HCPCS: 36415; 74176; 80053; 81001; 83690; 85025; 96374; 96375; 99283; 99284; J1170; J2405

== ENCOUNTER 2022-02-18 07:40 | Outpatient (REF) | payer OTHER, SELFPAY ==
--- NOTE | ~2022-02-18 | XR_ITS ---
EXAMINATION: XR THORACIC SPINE CLINICAL INFORMATION: Pain COMPARISON: None TECHNIQUE: 3 views of the thoracic spine were obtained. FINDINGS: There is no fracture or bone destruction seen and the vertebral alignment is normal. There is no disc space narrowing. There is no abnormality of the paraspinal soft tissues. XR/XR thoracic spine 3V IMPRESSION: Unremarkable examination.
--- NOTE | ~2022-02-18 | XR_ITS ---
EXAMINATION: RIGHT CLAVICLE AND RIGHT SHOULDER X-RAY CLINICAL INFORMATION: Pain COMPARISON: None TECHNIQUE: 2 views of the right clavicle. 4 views of the right shoulder. FINDINGS: Right clavicle: Bone alignment is normal. No fracture, dislocation or bone lesion is seen. There is mild arthritis at the acromioclavicular joint. There is soft tissue calcification inferior to the distal clavicle at the acromioclavicular joint. Right shoulder: Bone alignment is normal. No fracture or dislocation is seen. The glenohumeral joint is normal. There is mild arthritis at the acromioclavicular joint. There is faint soft tissue superior to the humeral head and adjacent to the greater tuberosity suggestive of calcific tendinitis or bursitis. XR/XR shoulder RT min 2V IMPRESSION: Mild arthritis at the acromioclavicular joint and soft tissue calcification suggestive of calcific tendinitis or bursitis.
--- NOTE | ~2022-02-18 | XR_ITS ---
EXAMINATION: XR SHOULDER, LEFT CLINICAL INFORMATION: Pain COMPARISON: Previous x-ray March 2014 TECHNIQUE: AP external rotation, Grashey, scapular Y, and axillary views of the left shoulder. FINDINGS: Bone alignment is normal. No fracture or dislocation is seen. The glenohumeral joint is normal. There is arthritis at the acromioclavicular joint. There is soft tissue calcification superior to the humeral head and adjacent to the greater tuberosity XR/XR shoulder LT min 2V IMPRESSION: Arthritis at the acromioclavicular joint and soft tissue calcification suggestive of calcific tendinitis or bursitis.
--- NOTE | ~2022-02-18 | XR_ITS ---
EXAMINATION: RIGHT CLAVICLE AND RIGHT SHOULDER X-RAY CLINICAL INFORMATION: Pain COMPARISON: None TECHNIQUE: 2 views of the right clavicle. 4 views of the right shoulder. FINDINGS: Right clavicle: Bone alignment is normal. No fracture, dislocation or bone lesion is seen. There is mild arthritis at the acromioclavicular joint. There is soft tissue calcification inferior to the distal clavicle at the acromioclavicular joint. Right shoulder: Bone alignment is normal. No fracture or dislocation is seen. The glenohumeral joint is normal. There is mild arthritis at the acromioclavicular joint. There is faint soft tissue superior to the humeral head and adjacent to the greater tuberosity suggestive of calcific tendinitis or bursitis. XR/XR clavicle RT IMPRESSION: Mild arthritis at the acromioclavicular joint and soft tissue calcification suggestive of calcific tendinitis or bursitis.
== END 2022-02-18 07:41 | disposition home or self-care (01) ==
LOC: HO.XRAY 07:40
PROVIDERS: PCP Family Medicine; Visit Provider Family Medicine
DX: M25.511 Pain in right shoulder (principal); M25.512 Pain in left shoulder; M54.6 Pain in thoracic spine; M89.8X1 Other specified disorders of bone, shoulder; R09.1 Pleurisy
CPT/HCPCS: 72072; 73000; 73030

== ENCOUNTER 2022-02-25 14:13 | Outpatient (REF) | payer OTHER, SELFPAY ==
--- NOTE | ~2022-02-25 | MM_ITS ---
EXAMINATION: MM SCREENING DIGITAL BREAST TOMOSYNTHESIS, BILATERAL CLINICAL INFORMATION: Screening. Asymptomatic. ADH right breast status post excision 09/2014. The lifetime risk of breast cancer based on the Tyrer-Cuzick Model is 21%. COMPARISON: Mammography: 02/23/2021, 10/01/2019, 08/28/2018, 02/24/2017, 08/24/2015, 08/19/2014 TECHNIQUE: Digital breast tomosynthesis is performed in both the craniocaudal and mediolateral oblique views along with computer-aided detection (CAD). Synthesized 2D images are generated from the tomosynthesis. FINDINGS: There are scattered areas of fibroglandular density (ACR BI-RADS breast composition Category b). The left CC view has asymmetric density adjacent to the posterior film margin just medial to midline, most likely artifact from superimposed vascular markings upper quadrant. Patient will be recalled to obtain additional views. The remainder of the bilateral breasts show no significant changes from prior studies. There is old scarring right breast posterior upper outer quadrant and a biopsy clip marker adjacent to stable nodule mid 9:30 o'clock right breast. There are no abnormal calcifications. Skin contours are smooth. MM/MM tomosynthesis screening BI IMPRESSION: Left: -Nodular asymmetry posterior film margin, likely artifact from superimposed vascular markings. Right: -No significant changes from prior studies. ASSESSMENT: BI-RADS 0: Incomplete - Need Additional Imaging Evaluation RECOMMENDATION: 1. Additional views of the left breast (CC, ML). 2. Targeted ultrasound if warranted after review of the additional views. 3. Radiology department staff will contact the patient for additional imaging. This patient's information was entered into a reminder system with a target due date for their next mammogram.
== END 2022-02-25 14:14 | disposition home or self-care (01) ==
LOC: HO.MAMMO 14:13
PROVIDERS: PCP Family Medicine; Visit Provider Family Medicine
DX: Z12.31 Encounter for screening mammogram for malignant neoplasm of breast (principal)
CPT/HCPCS: 77063; 77067

== ENCOUNTER 2022-03-04 10:14 | Outpatient (REF) | payer OTHER, SELFPAY ==
--- NOTE | ~2022-03-04 | MM_ITS ---
EXAMINATION: MM DIAGNOSTIC DIGITAL BREAST TOMOSYNTHESIS, LEFT CLINICAL INFORMATION: Recall from screening for asymmetric density posterior film margin likely artifact from superimposed vascular markings. COMPARISON: Mammography: 02/25/2022, 02/23/2021, 10/01/2019 TECHNIQUE: Digital breast tomosynthesis is performed. 2D images are generated from the tomosynthesis. The following views are obtained: CC, spot CC, ML x2. FINDINGS: There are scattered areas of fibroglandular density (ACR BI-RADS breast composition Category b). The additional views show vascular markings in the area of recent recall with no superimposed parenchymal density or architectural abnormality. Finding on recent mammography is related to the vascular markings as suspected. There are no significant changes from prior studies. Results are discussed with the patient at time of visit, using an cash management specialist. MM/MM tomosynthesis added views L IMPRESSION: No mammographic evidence of malignancy. ASSESSMENT: BI-RADS 2: Benign RECOMMENDATION: Routine annual mammography screening. This patient's information was entered into a reminder system with a target due date for their next mammogram.
== END 2022-03-04 10:15 | disposition home or self-care (01) ==
LOC: HO.MAMMO 10:14
PROVIDERS: PCP Family Medicine; Visit Provider Family Medicine
DX: R92.2 Inconclusive mammogram (principal)
CPT/HCPCS: 77061; 77065

== ENCOUNTER → 2022-03-28 13:29 | Outpatient (BNVA) | payer OTHER, SELFPAY | PROVIDERS: PCP Family Medicine; Visit Provider Physician Assistant | DX: M54.12 Radiculopathy, cervical region (principal) | CPT/HCPCS: 99202 ==

== ENCOUNTER → 2022-04-15 12:42 | Outpatient (BNVA) | payer OTHER, SELFPAY | PROVIDERS: PCP Family Medicine; Visit Provider Nurse Practitioner Family | DX: M79.18 Myalgia, other site (principal); M62.838 Other muscle spasm; M54.2 Cervicalgia; M47.22 Other spondylosis with radiculopathy, cervical region | CPT/HCPCS: 20552; 99202 ==

== ENCOUNTER 2022-05-09 17:55 | Outpatient (REF) | payer OTHER, SELFPAY ==
--- NOTE | ~2022-05-09 | MR_ITS ---
MR CERVICAL SPINE WITHOUT CONTRAST CLINICAL INFORMATION: Cervical region radiculopathy. COMPARISON: None available. TECHNIQUE: MRI of the cervical spine was obtained using routine sequences without contrast. FINDINGS: Cervical alignment is normal. The vertebral body heights are maintained. There is moderate to severe disc volume loss at C6-C7 and there is moderate disc volume loss at C5-C6. The craniocervical junction is unremarkable. There is no bone marrow edema. There are no acute fractures. Cervical arterial flow voids are maintained. There are no cord signal changes. Partially imaged intracranial compartment is unremarkable. C2-C3: Advanced left-sided facet arthropathy. No central canal stenosis and no foraminal stenosis. C3-C4: Disc osteophyte mildly narrows the central canal. Advanced uncovertebral joint hypertrophy and hypertrophic facet arthropathy result in severe left-sided foraminal stenosis. There is mild right-sided foraminal encroachment. C4-C5: Disc osteophyte and ligamentum flavum thickening result in mild to moderate central canal stenosis. Advanced bilateral facet arthropathy. No foraminal stenosis. Probable synovial cyst along the lateral margin of the degenerative left facet joint. C5-C6: A left paracentral disc osteophyte complex and ligamentum flavum thickening result in moderate central canal stenosis and flattening of the cord. Advanced uncovertebral joint hypertrophy and hypertrophic facet arthropathy result in severe bilateral foraminal stenosis. C6-C7: Disc osteophyte and ligamentum flavum thickening result in mild to moderate central canal stenosis and flattening of the cord. Advanced uncovertebral joint hypertrophy and hypertrophic facet arthropathy result in severe left-sided foraminal stenosis. C7-T1: Disc contour is normal. No central canal stenosis and no foraminal stenosis. MR/MR cervical spine wo con IMPRESSION: There is multilevel cervical spondylosis. Spondylitic changes result in moderate central canal stenosis and flattening of the ventral cord at C5-C6 as well as mild to moderate central canal stenosis and flattening of the ventral cord at C6-C7. Spondylitic changes also result in severe left C3-C4, severe bilateral C5-C6, and severe left C6-C7 foraminal stenosis.
== END 2022-05-09 17:56 | disposition home or self-care (01) ==
LOC: HO.MRI 17:55
PROVIDERS: Visit Provider Nurse Practitioner Family
DX: M54.12 Radiculopathy, cervical region (principal)
CPT/HCPCS: 72141

== ENCOUNTER 2022-05-23 10:04 | Outpatient (REF) | payer OTHER, SELFPAY ==
[2022-05-23 10:31] LABS: MANUAL DIFF FLAG NO
[2022-05-23 11:51] LABS: Albumin Level 4.3 g/dL (3.5-5.0); Anion Gap 16 (12-20); Blood Urea Nitrogen 16 mg/dL (9-16); Calcium 9.7 mg/dL (8.4-10.2); Carbon Dioxide 26 mmol/L (22-29); Chloride 104 mmol/L (96-108); Estimated Glomerular Filt Rate > 60; Magnesium 1.7 mg/dL (1.6-2.6); Phosphorus 3.6 mg/dL (2.7-4.5); Potassium 3.6 mmol/L (3.3-5.1); Sodium 142 mmol/L (135-145)
[2022-05-23 11:53] LABS: Basophils Percent Auto 0.8 % (0-2); Eosinophils Absolute Auto 0.2 X10*3/uL (0.0-0.4); Eosinophils Percent Auto 3.3 % (0-4); Hematocrit 40.1 % (37.0-47.0); Hemoglobin 13.5 g/dl (12.0-16.0); Imm Gran Abs Auto 0.01 X10*3/uL (0.00-0.03); Imm Gran Pct Auto 0.2 % (0.0-0.4); Lymphocytes Absolute Auto 1.8 X10*3/uL (1.2-4.9); Lymphocytes Percent Auto 36.4 % (20-40); Mean Corpuscular HGB Conc 33.7 g/dl (31.0-35.0); Mean Corpuscular Hemoglobin 28.7 pg (27.0-33.0); Mean Corpuscular Volume 85.3 fL (80.0-98.0); Monocytes Absolute Auto 0.5 X10*3/uL (0.1-1.2); Monocytes Percent Auto 9.2 % (2-11); Neutrophils Absolute Auto 2.5 x10*3/uL (2.0-8.3); Neutrophils Percent Auto 50.1 % (45-73); Platelet Count 272 X10*3/uL (160-400); Red Cell Distribution Width 13.7 % (11.0-16.0); White Blood Count 4.9 X10*3/uL (4.8-10.8)
[2022-05-23 12:08] LABS: Appearance Urine CLEAR; Color Urine YELLOW; Glucose Urine UA NEG (NEG); Leukocyte Esterase Urine 1+ (NEG); Nitrite Urine NEG (NEG); Urine Blood NEG (NEG); Urine Ketones NEG (NEG); Urine Protein NEG (NEG-TRACE)
[2022-05-23 12:13] LABS: Vitamin D 25-OH Total 28.5 ng/mL (>30)
[2022-05-23 12:42] LABS: Creatinine Urine 67.36 mg/dL; Microalbum/Creatinine Ratio Ur 16.3 ug/mg cr; Total Protein Urine Random < 7 mg/dL (<12)
[2022-05-23 12:59] LABS: Renal Epithelial Cells Urine 1+ /LPF; Squamous Epithelial Cell Urine 2+ /LPF
[2022-05-23 13:00] LABS: Bacteria Urine TRACE /LPF
[2022-05-23 13:01] LABS: RBC Urine 0 /HPF (0)
[2022-05-24 12:48] LABS: Calcium (PTHI) 9.7 mg/dL (8.6-10.4); PTHI 108 pg/mL (16-77)
== END 2022-05-23 10:05 | disposition home or self-care (01) ==
LOC: HO.LAB 10:04
PROVIDERS: PCP Family Medicine; Visit Provider Internal Medicine Nephrology
DX: N18.31 Chronic kidney disease, stage 3a (principal); E11.29 Type 2 diabetes mellitus with other diabetic kidney complication; E11.22 Type 2 diabetes mellitus with diabetic chronic kidney disease
CPT/HCPCS: 36415; 80051; 81001; 82040; 82043; 82306; 82310; 82565; 83735; 83970; 84100; 84156; 84520; 85025; 87086

== ENCOUNTER → 2022-09-21 16:12 | Outpatient (BNVA) | payer OTHER, SELFPAY | PROVIDERS: PCP Family Medicine; Visit Provider Anesthesiology | DX: M54.12 Radiculopathy, cervical region (principal); M62.838 Other muscle spasm; M47.812 Spondylosis without myelopathy or radiculopathy, cervical region | CPT/HCPCS: 99212 ==

== ENCOUNTER 2022-12-16 13:00 | Outpatient (RCR) | payer OTHER, SELFPAY | END 2023-01-31 13:56 | disposition home or self-care (01) | LOC: HO.PT 13:00 | PROVIDERS: PCP Family Medicine; Visit Provider Physician Assistant | DX: M54.2 Cervicalgia (principal); M25.511 Pain in right shoulder; M25.512 Pain in left shoulder | CPT/HCPCS: 97110; 97140; 97162; 97530 ==